=== PATIENT | male | born 1990 | race Caucasian/White ===

== ENCOUNTER 2020-10-09 09:41 | Outpatient (CLI) | payer MEDICARE, MEDICAID, SELFPAY | END 2020-10-09 09:42 | disposition home or self-care (01) | DX: H90.6 Mixed conductive and sensorineural hearing loss, bilateral (principal) | CPT/HCPCS: 92557; 92567 ==

== ENCOUNTER 2021-10-18 11:16 | Outpatient (CLI) | payer MEDICARE, MEDICAID, SELFPAY | END 2021-10-18 11:17 | disposition home or self-care (01) | LOC: ANHBWCAUD 11:18 | DX: H90.6 Mixed conductive and sensorineural hearing loss, bilateral (principal) | CPT/HCPCS: 92557; 92567 ==

== ENCOUNTER 2022-10-21 08:59 | Outpatient (CLI) | payer MEDICARE, MEDICAID, SELFPAY | END 2022-10-21 09:00 | disposition home or self-care (01) | LOC: ANHBWCAUD 09:00 | DX: H91.93 Unspecified hearing loss, bilateral (principal) | CPT/HCPCS: 92567 ==

== ENCOUNTER 2023-07-22 07:52 | Outpatient (CLI) | payer MEDICARE, MEDICAID, SELFPAY | END 2023-07-22 07:53 | disposition home or self-care (01) | LOC: ANHBWCAUD 08:06 | PROVIDERS: PCP Internal Medicine Rheumatology | DX: H91.93 Unspecified hearing loss, bilateral (principal) | CPT/HCPCS: 99199 ==

== ENCOUNTER 2023-12-02 10:27 | Outpatient (CLI) | payer MEDICARE, MEDICAID, SELFPAY | END 2023-12-02 10:28 | disposition home or self-care (01) | PROVIDERS: PCP Internal Medicine Rheumatology | DX: H91.93 Unspecified hearing loss, bilateral (principal) | CPT/HCPCS: 92567; 99199 ==

== ENCOUNTER 2025-04-11 09:00 | Outpatient (CLI) | payer MEDICARE, MEDICAID, SELFPAY ==
--- OUTSIDE RECORDS SUMMARY | 2025-04-11 09:49 | XMS_ITS | Encounter Summary ---
Author Organization [facility] Address [address] [place] [address] Phone Care Team Providers Care Popcorn Attendant Name Role Phone Provider, Unknown Primary Care Provider Unavaila ble Mario Quinones MD Primary Care Provider Federico Galdamez MD Primary Care Provider [phone] Eulalia Sebastian MD Unavailable [phone] Encounter Details Date Type Department Care Team (Late st Contact Info) Description 05/22/2021 Lab Requisition [facility] Laboratory Services [address] [place] [address] Mario Quinones MD 4 [facility] [address] [place] [address] Social History Tobacco Use Types Packs/Day Years Used Date Smoking Tobacco: Never Assessed Sex and Gender Information Value Date Recorded Sex Assigned at Not on file Legal Sex Male 12:03 AM CDT Gender Identity Not on file Sexual Orientation Not on file documented as of this encounter Plan of Treatment Upcoming Encounters Date Type Department Care Team (Late st Contact Info) Description 09/20/2025 1:30 PM CDT Office Visit [facility] Medical Group - Ear, Nose & Throat - [place] [address] [place] [address] Eulalia Sebastian MD [address] [facility] [address] [place] [address] documented as of this encounter Procedures Procedure Name Priority Date/Time Associated Diagnosis Comments SARS-COV-2 BY MOLECULAR Routine 05/22/2021 7:52 AM MIRROR SPECIALIST documented in this encounter Results * SARS-COV-2 BY MOLECULAR (05/22/2021 7:52 AM MIRROR SPECIALIST) SARSCOV2 NOT DETECTED (Referen ce Range for this test is Not Detected ) [facility] THERMOFISHER FAST DX 05/23/2021 1:28 PM MIRROR SPECIALIST [facility] Comment:This test was perfor med by a RT-PCR method. Other Non-Phlebotomy Collection / Unknown 05/22/2021 7:52 AM MIRROR SPECIALIST 05/22/2021 10:54 AM MIRROR SPECIALIST [facility]ative [facility] - 05/23/2021 1:28 PM MIRROR SPECIALIST Authorized Fact Sheets about this test for providers and patients are available at: https://www.fda.gov/medical-devices/iueodebym-nnlvuhgbnp-xsrmwre-devices/emergen -us e-authorizations us Mario Quinones MD MICROBIOLOGY - GENERAL ORDERAB LES Final Result [facility] [address] [place] [address], documented in this encounter Visit Diagnoses Not on filedocumented in this encounter Additional Health Concerns Infection Onset Date Last Indicated Resolved Time COVID - 19 05/22/2021 05/29/2021 06/18/2021 12:1 6 AM MIRROR SPECIALIST COVID - 19 08/28/2021 09/04/2021 09/24/2021 12:1 7 AM CDT COVID - 19 10/16/2021 11/20/2021 12/10/2021 12:1 6 AM CDT COVID - 19 02/19/2022 02/19/2022 03/01/2022 12:1 6 AM CDT COVID - 19 03/05/2022 03/19/2022 03/29/2022 12:1 6 AM CDT COVID - 19 04/02/2022 04/02/2022 04/12/2022 12:1 6 AM CDT COVID - 19 04/16/2022 04/23/2022 05/03/2022 12:1 7 AM MIRROR SPECIALIST COVID - 19 06/25/2022 08/13/2022 08/23/2022 12:1 6 AM MIRROR SPECIALIST COVID - 19 09/03/2022 09/03/2022 09/13/2022 12:1 6 AM CDT documented as of this encounter Care Teams Popcorn Attendant Relationship Specialty Start Date End Date Provider, Unknown UNKNOWN PCP - General 05/22/21 09/11/22 Mario Quinones MD 4 [facility] [address] [facility] [address] PCP - General Family Medicine 09/12/22 04/17/24 Federico Galdamez MD [address] [facility] [address] [place] [address] PCP - General Internal Medicine 04/18/24 Eulalia Sebastian MD #2 [facility] [address] [place] [address] Consulting Physician Otolaryngology 02/15/25 documented as of this encounter
--- OUTSIDE RECORDS SUMMARY | 2025-04-11 09:50 | XMS_ITS | Encounter Summary ---
Author Organization [facility] Address [address] [place] [address] Phone Care Team Providers Care Micro Paleontologist Name Role Phone Provider, Unknown Primary Care Provider Unavaila ble Mario Quinones MD Primary Care Provider [phone] Federico Galdamez MD Primary Care Provider Eulalia Sebastian MD Unavailable [phone] Encounter Details Date Type Department Care Team (Late st Contact Info) Description 07/09/2022 Lab Requisition [facility] Laboratory Services [address] [place] [address] Mario Quinones MD [address] [facility] [address] [place] [address] Encounter for screening for COVID-19 Social History Tobacco Use Types Packs/Day Years [...] Description 09/20/2025 1:30 PM CDT [facility] Th[facility]at - [place] [address] [place] [address] Eulalia Sebastian MD [address] [facility] [facility] [address] [place] [address] documented as of this encounter Procedures Procedure Name Priority Date/Time Associated Diagnosis Comments SARS-COV-2 BY MOLECULAR Routine 07/09/2022 7:50 AM WOOL SHEARER Encounter for screening for COVID-19 documented in this encounter Results * SARS-COV-2 BY MOLECULAR (07/09/2022 7:50 AM WOOL SHEARER) SARSCOV2 NOT DETECTED (Referen ce Range for this test is Not Detected ) [facility] THERMOF[facility] FAST DX 07/09/2022 8:36 PM WOOL SHEARER [facility] Comment:This test was perfor med by a RT-PCR method. Other Non-Phlebotomy Collection / Unknown 07/09/2022 7:50 AM WOOL SHEARER 07/09/2022 10:10 AM [address]ER N[address] [facility] - 07/09/2022 8:36 PM WOOL SHEARER Authorized Fact Sheets about this test for providers and patients are available at: https://www.fda.gov/medical-devices/immimzvir-mpninwrbzu-rxpiadj-devices/emergen -us e-authorizations us Mario Quinones MD MICROBIOLOGY - GENERAL ORDERAB LES Final Result [facility] [address] [place] [address], documented in this encounter Visit Diagnoses Diagnosis Encounter for screening for COVID-19 documented in this encounter Additional Health Concerns Infection Onset Date Last Indicated Resolved Time COVID - 19 06/25/2022 08/13/2022 08/23/2022 12:1 6 AM WOOL SHEARER COVID - 19 09/03/2022 09/03/2022 09/13/2022 12:1 6 AM CDT documented as of this encounter Care Teams Micro Paleontologist Relationship Specialty Start Date End Date Provider, Unknown UNKNOWN PCP - General 05/22/21 09/11/22 Mario Quinones MD [address] [place] [address] [address] [place] [address] PCP - General Family Medicine 09/12/22 04/17/24 Federico Galdamez MD [address] [facility] [address] [place] [address] PCP - General Internal Medicine 04/18/24 Eulalia Sebastian MD #2 [facility] [address] [address] Consulting Physician Otolaryngology 02/15/25 documented as of this encounter
--- OUTSIDE RECORDS SUMMARY | 2025-04-11 09:50 | XMS_ITS | Encounter Summary ---
Author Organization [facility] Address [address] [place] [address] Phone Care Team Providers Care Security Engineer Name Role Phone Provider, Unknown Primary Care Provider Unavaila ble Mario Quinones MD Primary Care Provider [phone] Federico Galdamez MD Primary Care Provider Eulalia Sebastian MD Unavailable [phone] Encounter Details Date Type Department Care Team (Late st Contact Info) Description 04/16/2022 Lab Requisition [facility] Laboratory Services [address] [place] [address] Mario Quinones MD [address] [facility] [address] [place] [address] Encounter for screening for COVID-19 Social History [...] Description 09/20/2025 1:30 PM CDT Office Visit [facility] Medical Group - Ear, Nose & Throat - [place] [address] [place] [address] Eulalia Sebastian MD [address] [facility] [address] [place] [address] documented as of this encounter Procedures Procedure Name Priority Date/Time Associated Diagnosis Comments SARS-COV-2 BY MOLECULAR Routine 04/16/2022 8:20 AM CDT Encounter for screening for COVID-19 documented in this encounter Results * SARS-COV-2 BY MOLECULAR (04/16/2022 8:20 AM CDT) SARSCOV2 NOT DETECTED (Referen ce Range for this test is Not Detected ) [facility] THERMOFISHER FAST DX 04/17/2022 9:53 AM CDT [facility] Comment:This test was perfor med by a RT-PCR method. Other Non-Phlebotomy Collection / Unknown 04/16/2022 8:20 AM CDT 04/16/2022 11:53 AM CDT Narrative [facility] - 04/17/2022 9:53 AM CDT Authorized Fact Sheets about this test for providers and patients are available at: https://www.fda.gov/medical-devices/wezwdniyf-targfvdaec-dowwuyh-devices/emergen -us e-authorizations us Mario Quinones MD MICROBIOLOGY - GENERAL ORDERAB LES Final Result [facility] [address] [place] [address], documented in this encounter Visit Diagnoses Diagnosis Encounter for screening for COVID-19 documented in this encounter Additional Health Concerns Infection Onset Date Last Indicated Resolved Time COVID - 19 04/16/2022 04/23/2022 05/03/2022 12:1 7 AM KINDERGARTEN TUTOR COVID - 19 06/25/2022 08/13/2022 08/23/2022 12:1 6 AM KINDERGARTEN TUTOR COVID - 19 09/03/2022 09/03/2022 09/13/2022 12:1 6 AM CDT documented as of this encounter Care Teams Security Engineer Relationship Specialty Start Date End Date Provider, Unknown UNKNOWN PCP - General 05/22/21 09/11/22 Mario Quinones MD [address] [place] [address] [place] [address] PCP - General Family Medicine 09/12/22 04/17/24 Federico Galdamez MD [address] [facility] [address] [place] [address] PCP - General Internal Medicine 04/18/24 Eulalia Sebastian MD #2 [facility] [address] [place] [address] Consulting Physician Otolaryngology 02/15/25 documented as of this encounter
--- OUTSIDE RECORDS SUMMARY | 2025-04-11 09:50 | XMS_ITS | Encounter Summary ---
Author Organization [facility] Address [address] [place] [address] Phone Care Team Providers Care Clothespin Drier Operator Name Role Phone Provider, Unknown Primary Care Provider Unavaila ble Mario Quinones MD Primary Care Provider Federico Galdamez MD Primary Care Provider Eulalia Sebastian MD Unavailable [phone] Encounter Details Date Type Department Care Team (Late st Contact Info) Description 09/04/2021 [facility] [address] [place] [address] Mario Quinones MD [address] [facility] [address] [place] [address] Encounter for screening for COVID-19 Social History [...] Group - Ear, Nose & Throat - [place] [address] [place] [address] Eulalia Sebastian MD [address] [facility] [address] [place] [address] documented as of this encounter Procedures Procedure Name Priority Date/Time Associated Diagnosis Comments SARS-COV-2 BY MOLECULAR Routine 09/04/2021 7:28 AM CDT Encounter for screening for COVID-19 documented in this encounter Results * SARS-COV-2 BY MOLECULAR (09/04/2021 7:28 AM CDT) SARSCOV2 NOT DETECTED (Referen ce Range for this test is Not Detected ) [facility] THERMOFISHER FAST DX 09/04/2021 11:53 PM CDT [facility] Comment:This test was perfor med by a RT-PCR method. Other Non-Phlebotomy Collection / Unknown 09/04/2021 7:28 AM CDT 09/04/2021 1:06 PM CDT Narrative [facility] - 09/04/2021 11:53 PM CDT Authorized Fact Sheets about this test for providers and patients are available at: https://www.fda.gov/medical-devices/jdiohqvfa-mrbrisehra-rlavffo-devices/emergen -us e-authorizations us Mario Quinones MD MICROBIOLOGY - GENERAL ORDERAB LES Final Result [facility] [address] [place] [address], documented in this encounter Visit Diagnoses Diagnosis Encounter for screening for COVID-19 documented in this encounter Additional Health Concerns Infection Onset Date Last Indicated Resolved Time COVID - 19 08/28/2021 09/04/2021 09/24/2021 12:1 7 AM CDT COVID - 19 10/16/2021 11/20/2021 12/10/2021 12:1 6 AM CDT COVID - 19 02/19/2022 02/19/2022 03/01/2022 12:1 6 AM CDT COVID - 19 03/05/2022 03/19/2022 03/29/2022 12:1 6 AM CDT COVID - 19 04/02/2022 04/02/2022 04/12/2022 12:1 6 AM CDT COVID - 19 04/16/2022 04/23/2022 05/03/2022 12:1 7 AM CSR TECHNICIAN COVID - 19 06/25/2022 08/13/2022 08/23/2022 12:1 6 AM CSR TECHNICIAN COVID - 19 09/03/2022 09/03/2022 09/13/2022 12:1 6 AM CDT documented as of this encounter Care Teams Clothespin Drier Operator Relationship Specialty Start Date End Date Provider, Unknown UNKNOWN PCP - General 05/22/21 09/11/22 Mario Quinones MD 4 [facility] [address] [facility] [place] [address] PCP - General Family Medicine 09/12/22 04/17/24 Federico Galdamez MD [address] [facility] 160 [place] [address] PCP - General Internal Medicine 04/18/24 Eulalia Sebastian MD #2 [facility] [address] [place] [address] Consulting Physician Otolaryngology 02/15/25 documented as of this encounter
--- OUTSIDE RECORDS SUMMARY | 2025-04-11 09:50 | XMS_ITS | Encounter Summary ---
Author Organization [facility] Address [address] [place] [address] Phone Care Team Providers Care Glassine Machine Tender Name Role Phone Provider, Unknown Primary Care Provider Unavaila ble Mario Quinones MD Primary Care Provider [phone] Federico Galdamez MD Primary Care Provider Eullaia Sebastian MD Unavailable [phone] Encounter Details Date Type Department Care Team (Late st Contact Info) Description 03/12/2022 [facility] [address] [place] [address] Mario Quinones MD [address] [facility] [address] [place] [address] Encounter for screening for COVID-19 Social History [...] Group - Ear, Nose & Throat - [place] [address] [place] [address] Eulalia Sebastian MD [address] [facility] [address] [place] [address] documented as of this encounter Procedures Procedure Name Priority Date/Time Associated Diagnosis Comments SARS-COV-2 BY MOLECULAR Routine 03/12/2022 7:40 AM CDT Encounter for screening for COVID-19 documented in this encounter Results * SARS-COV-2 BY MOLECULAR (03/12/2022 7:40 AM CDT) SARSCOV2 NOT DETECTED (Referen ce Range for this test is Not Detected ) [facility] THERMOFISHER FAST DX 03/13/2022 10:24 AM CDT [facility] Comment:This test was perfor med by a RT-PCR method. Other Non-Phlebotomy Collection / Unknown 03/12/2022 7:40 AM CDT 03/12/2022 11:23 AM CDT Narrative [facility] - 03/13/2022 10:24 AM CDT Authorized Fact Sheets about this test for providers and patients are available at: https://www.fda.gov/medical-devices/yabznzgbc-lnhiejzsjg-awtqdve-devices/emergen -us e-authorizations us Mario Quinones MD MICROBIOLOGY - GENERAL ORDERAB LES Final Result [facility] [address] [place] [address], documented in this encounter Visit Diagnoses Diagnosis Encounter for screening for COVID-19 documented in this encounter Additional Health Concerns Infection Onset Date Last Indicated Resolved Time COVID - 19 03/05/2022 03/19/2022 03/29/2022 12:1 6 AM CDT COVID - 19 04/02/2022 04/02/2022 04/12/2022 12:1 6 AM CDT COVID - 19 04/16/2022 04/23/2022 05/03/2022 12:1 7 AM MEDICAL BILLING COORDINATOR COVID - 19 06/25/2022 08/13/2022 08/23/2022 12:1 6 AM MEDICAL BILLING COORDINATOR COVID - 19 09/03/2022 09/03/2022 09/13/2022 12:1 6 AM CDT documented as of this encounter Care Teams Glassine Machine Tender Relationship Specialty Start Date End Date Provider, Unknown UNKNOWN PCP - General 05/22/21 09/11/22 Mario Quinones MD 4 [facility] [address] [place] [address] PCP - General Family Medicine 09/12/22 04/17/24 Federico Galdamez MD [address] [facility] [address] [place] [address] PCP - General Internal Medicine 04/18/24 Eulalia Sebastian MD #2 [facility] [address] [place] [address] Consulting Physician Otolaryngology 02/15/25 documented as of this encounter
--- OUTSIDE RECORDS SUMMARY | 2025-04-11 09:50 | XMS_ITS | Encounter Summary ---
Author Organization [facility] Address [address] [place] [address] Phone Care Team Providers Care High Worker Name Role Phone Provider, Unknown Primary Care Provider Unavaila ble Mario Quinones MD Primary Care Provider [phone] Federico Galdamez MD Primary Care Provider [phone] Eulalia Sebastian MD Unavailable [phone] Encounter Details Date Type Department Care Team (Late st Contact Info) Description 06/25/2022 Lab Requisition [facility] Laboratory Services [address] [place] [phone] Mario Quinones MD [address] [facility] [address] [place] [address] Encounter for screening for COVID-19 Social History [...] Group - Ear, Nose & Throat - [place] [address] [place] [address] Eulalia Sebastian MD [address] [address] [facility] [address] [place] [address] documented as of this encounter Procedures Procedure Name Priority Date/Time Associated Diagnosis Comments SARS-COV-2 BY MOLECULAR Routine 06/25/2022 7:59 AM DIGITIZER OPERATOR Encounter for screening for COVID-19 documented in this encounter Results * SARS-COV-2 BY MOLECULAR (06/25/2022 7:59 AM DIGITIZER OPERATOR) SARSCOV2 NOT DETECTED (Referen ce Range for this test is Not Detected ) [facility] THERMOFISHER FAST DX 06/25/2022 9:20 PM DIGITIZER OPERATOR [facility] Comment:This test was perfor med by a RT-PCR method. Other No Phlebotomy Charged / Unknown 06/25/2022 7:59 AM DIGITIZER OPERATOR 06/25/2022 10:34 AM DIGITIZER OPERATOR Narrative [facility] - 06/25/2022 9:20 PM DIGITIZER OPERATOR Authorized Fact Sheets about this test for providers and patients are available at: https://www.fda.gov/medical-devices/ibmkgqisg-fovjqvxmxo-qozvjob-devices/emergen -us e-authorizations us Mario Quinones MD MICROBIOLOGY - GENERAL ORDERAB LES Final Result [facility] [address] [place] [address], documented in this encounter Visit Diagnoses Diagnosis Encounter for screening for COVID-19 documented in this encounter Additional Health Concerns Infection Onset Date Last Indicated Resolved Time COVID - 19 06/25/2022 08/13/2022 08/23/2022 12:1 6 AM DIGITIZER OPERATOR COVID - 19 09/03/2022 09/03/2022 09/13/2022 12:1 6 AM CDT documented as of this encounter Care Teams High Worker Relationship Specialty Start Date End Date Provider, Unknown UNKNOWN PCP - General 05/22/21 09/11/22 Mario Quinones MD [address] [place] [address] [address] [place] [address] PCP - General Family Medicine 09/12/22 04/17/24 Federico Galdamez MD [address] [place] [address] PCP - General Internal Medicine 04/18/24 Eulalia Sebastian MD #2 [facility] [address] [address] Consulting Physician Otolaryngology 02/15/25 documented as of this encounter
--- OUTSIDE RECORDS SUMMARY | 2025-04-11 09:50 | XMS_ITS | Encounter Summary ---
Author Organization [facility] Address [address] [place] [address] Phone Care Team Providers Care Banquet Supervisor Name Role Phone Provider, Unknown Primary Care Provider Unavaila ble Mario Quinones MD Primary Care Provider Federico Galdamez MD Primary Care Provider Eulalia Sebastian MD Unavailable [phone] Encounter Details Date Type Department Care Team (Late st Contact Info) Description 05/29/2021 Lab Requisition [facility] Laboratory Services [address] [place] [address] Mario Quinones MD [address] [facility] [address] [place] [address] Encounter for screening for COVID-19 Social History [...] Description 09/20/2025 1:30 PM CDT Office Visit [facility] Medical Group - Ear, Nose & Throat - [place] [address] [place] [address] Eulalia Sebastian MD [address] [facility] [address] [place] [address] documented as of this encounter Procedures Procedure Name Priority Date/Time Associated Diagnosis Comments SARS-COV-2 BY MOLECULAR Routine 05/29/2021 8:08 AM VICE PRESIDENT OF BRAND MANAGEMENT Encounter for screening for COVID-19 documented in this encounter Results * SARS-COV-2 BY MOLECULAR (05/29/2021 8:08 AM VICE PRESIDENT OF BRAND MANAGEMENT) SARSCOV2 NOT DETECTED (Referen ce Range for this test is Not Detected ) [facility] THERMOFISHER FAST DX 05/30/2021 5:59 PM VICE PRESIDENT OF BRAND MANAGEMENT [facility] Comment:This test was perfor med by a RT-PCR method. Other No Phlebotomy Charged / Unknown 05/29/2021 8:08 AM VICE PRESIDENT OF BRAND MANAGEMENT 05/29/2021 10:58 AM VICE PRESIDENT OF BRAND MANAGEMENT Narrative [facility] - 05/30/2021 5:59 PM VICE PRESIDENT OF BRAND MANAGEMENT Authorized Fact Sheets about this test for providers and patients are available at: https://www.fda.gov/medical-devices/dffuohfyp-hejewjvbce-qcmjimh-devices/emergen -us e-authorizations us Mario Quinones MD MICROBIOLOGY - GENERAL ORDERAB LES Final Result [facility] [address] [place] [address], documented in this encounter Visit Diagnoses Diagnosis Encounter for screening for COVID-19 documented in this encounter Additional Health Concerns Infection Onset Date Last Indicated Resolved Time COVID - 19 05/22/2021 05/29/2021 06/18/2021 12:1 6 AM VICE PRESIDENT OF BRAND MANAGEMENT COVID - 19 08/28/2021 09/04/2021 09/24/2021 12:1 7 AM CDT COVID - 19 10/16/2021 11/20/2021 12/10/2021 12:1 6 AM CDT COVID - 19 02/19/2022 02/19/2022 03/01/2022 12:1 6 AM CDT COVID - 19 03/05/2022 03/19/2022 03/29/2022 12:1 6 AM CDT COVID - 19 04/02/2022 04/02/2022 04/12/2022 12:1 6 AM CDT COVID - 19 04/16/2022 04/23/202205/03/2022 12:1 7 AM VICE PRESIDENT OF BRAND MANAGEMENT COVID - 19 06/25/2022 08/13/2022 08/23/2022 12:1 6 AM VICE PRESIDENT OF BRAND MANAGEMENT COVID - 19 09/03/2022 09/03/2022 09/13/2022 12:1 6 AM CDT documented as of this encounter Care Teams Banquet Supervisor Relationship Specialty Start Date End Date Provider, Unknown UNKNOWN PCP - General 05/22/21 09/11/22 Mario Quinones MD [address] [facility] [address] [place] [address] PCP - General Family Medicine 09/12/22 04/17/24 Federico Galdamez MD [address] [facility] 160 [place] [address] PCP - General Internal Medicine 04/18/24 Eulalia Sebastian MD #2 [facility] [address] [place] [address] Consulting Physician Otolaryngology 02/15/25 documented as of this encounter
--- OUTSIDE RECORDS SUMMARY | 2025-04-11 09:50 | XMS_ITS | Encounter Summary ---
Author Organization [facility] Address [address] [place] [address] Phone Care Team Providers Care Racing Driver Name Role Phone Provider, Unknown Primary Care Provider Unavaila ble Mario Quinones MD Primary Care Provider Federico Galdamez MD Primary Care Provider Eulalia Sebastian MD Unavailable [phone] Encounter Details Date Type Department Care Team (Late st Contact Info) Description 11/06/2021 Lab Requisition [facility] Laboratory Services [address] [place] [address] Mario Quinones MD 4 [facility] [address] [place] [address] Encounter for screening for COVID-19 Social History [...] Group - Ear, Nose & Throat - [place] [address] [place] [address] Eulalia Sebastian MD [address] [address] [place] [phone] documented as of this encounter Procedures Procedure Name Priority Date/Time Associated Diagnosis Comments SARS-COV-2 BY MOLECULAR Routine 11/06/2021 8:24 AM CDT Encounter for screening for COVID-19 documented in this encounter Results * SARS-COV-2 BY MOLECULAR (11/06/2021 8:24 AM CDT) SARSCOV2 NOT DETECTED (Referen ce Range for this test is Not Detected ) [facility] THERMOFISHER FAST DX 11/07/2021 6:32 PM CDT [facility] Comment:This test was perfor med by a RT-PCR method. Other Non-Phlebotomy Collection / Unknown 11/06/2021 8:24 AM CDT 11/06/2021 10:48 AM CDT Narrative [facility] - 11/07/2021 6:32 PM CDT Authorized Fact Sheets about this test for providers and patients are available at: https://www.fda.gov/medical-devices/bjqnqdhvr-dqpzyqjsqt-axfrnjo-devices/emergen -us e-authorizations us Mario Quinones MD MICROBIOLOGY - GENERAL ORDERAB LES Final Result [facility] [address] [place] [address], documented in this encounter Visit Diagnoses Diagnosis Encounter for screening for COVID-19 documented in this encounter Additional Health Concerns Infection Onset Date Last Indicated Resolved Time COVID - 19 10/16/2021 11/20/2021 12/10/2021 12:1 6 AM CDT COVID - 19 02/19/2022 02/19/2022 03/01/2022 12:1 6 AM CDT COVID - 19 03/05/2022 03/19/2022 03/29/2022 12:1 6 AM CDT COVID - 19 04/02/2022 04/02/2022 04/12/2022 12:1 6 AM CDT COVID - 19 04/16/2022 04/23/2022 05/03/2022 12:1 7 AM RADIO BOARD OPERATOR ANNOUNCER COVID - 19 06/25/2022 08/13/2022 08/23/2022 12:1 6 AM RADIO BOARD OPERATOR ANNOUNCER COVID - 19 09/03/2022 09/03/2022 09/13/2022 12:1 6 AM CDT documented as of this encounter Care Teams Racing Driver Relationship Specialty Start Date End Date Provider, Unknown UNKNOWN PCP - General 05/22/21 09/11/22 Mario Quinones MD 4 [facility] [address] [place] [address] PCP - General Family Medicine 09/12/22 04/17/24 Federico Galdamez MD [address] [facility] [address] [place] [address] PCP - General Internal Medicine 04/18/24 Eulalia Sebastian MD #2 [facility] [address] [place] [address] Consulting Physician Otolaryngology 02/15/25 documented as of this encounter
--- OUTSIDE RECORDS SUMMARY | 2025-04-11 09:50 | XMS_ITS | Encounter Summary ---
Author Organization [facility] Address [address] [place] [address] Phone Care Team Providers Care Internet Marketing Specialist Name Role Phone Provider, Unknown Primary Care Provider Unavaila ble Mario Quinones MD Primary Care Provider Federico Galdamez MD Primary Care Provider Eulalia Sebastian MD Unavailable [phone] Encounter Details Date Type Department Care Team (Late st Contact Info) Description 10/23/2021 Lab Requisition [facility] Laboratory Services [address] [place] [id number] Mario Quinones MD [address] [facility] [address] [place] [address] Encounter for screening for COVID-19 Social History [...] Group - Ear, Nose & Throat - [place] [address] [place] [address] Eulalia Sebastian MD [address] [facility] [address] [place] [phone] documented as of this encounter Procedures Procedure Name Priority Date/Time Associated Diagnosis Comments SARS-COV-2 BY MOLECULAR Routine 10/23/2021 8:04 AM CDT Encounter for screening for COVID-19 documented in this encounter Results * SARS-COV-2 BY MOLECULAR (10/23/2021 8:04 AM CDT) SARSCOV2 NOT DETECTED (Referen ce Range for this test is Not Detected ) [facility] THERMOFISHER FAST DX 10/23/2021 11:40 PM CDT [facility] Comment:This test was perfor med by a RT-PCR method. Other Non-Phlebotomy Collection / Unknown 10/23/2021 8:04 AM CDT 10/23/2021 12:02 PM CDT Narrative [facility] - 10/23/2021 11:40 PM CDT Authorized Fact Sheets about this test for providers and patients are available at: https://www.fda.gov/medical-devices/xcggfjint-gppqnspdla-iwaabsg-devices/emergen -us e-authorizations us Mario Quinones MD MICROBIOLOGY - GENERAL ORDERAB LES Final Result [facility] [address] [place] [address], documented in this encounter Visit Diagnoses Diagnosis [...] 19 04/16/2022 04/23/2022 05/03/2022 12:1 7 AM HOUSE WIRER COVID - 19 06/25/2022 08/13/2022 08/23/2022 12:1 6 AM HOUSE WIRER COVID - 19 09/03/2022 09/03/2022 09/13/2022 12:1 6 AM CDT documented as of this encounter Care Teams Internet Marketing Specialist Relationship Specialty Start Date End Date Provider, Unknown UNKNOWN PCP - General 05/22/21 09/11/22 Mario Quinones MD [address] [facility] [address] [place] [address] PCP - General Family Medicine 09/12/22 04/17/24 Federico Galdamez MD [address] [facility] [address] [place] [address] PCP - General Internal Medicine 04/18/24 Eulalia Sebastian MD #2 [facility] [address] [place] [address] Consulting Physician Otolaryngology 02/15/25 documented as of this encounter
--- OUTSIDE RECORDS SUMMARY | 2025-04-11 09:50 | XMS_ITS | Encounter Summary ---
Author Organization [facility] Address [address] [place] [address] Phone Care Team Providers Care Spring Setter Name Role Phone Provider, Unknown Primary Care Provider Unavaila ble Mario Quinones MD Primary Care Provider [phone] Federico Galdamez MD Primary Care Provider Eulalia Sebastian MD Unavailable [phone] Encounter Details Date Type Department Care Team (Late st Contact Info) Description 07/23/2022 Lab Requisition [facility] Laboratory Services [address] [place] [address] Mario Quinones MD [address] [facility] [address] [place] [address] Encounter for screening for COVID-19 Social History [...] Group - Ear, Nose & Throat - [place] [address] [place] [address] Eulalia Sebastian MD [address] [facility] [facility] [address] [place] [phone] documented as of this encounter Procedures Procedure Name Priority Date/Time Associated Diagnosis Comments SARS-COV-2 BY MOLECULAR Routine 07/23/2022 7:58 AM WHISTLE PUNK Encounter for screening for COVID-19 documented in this encounter Results * SARS-COV-2 BY MOLECULAR (07/23/2022 7:58 AM WHISTLE PUNK) SARSCOV2 NOT DETECTED (Referen ce Range for this test is Not Detected ) [facility] THERMOFISHER FAST DX 07/23/2022 9:47 PM WHISTLE PUNK [facility] Comment:This test was perfor med by a RT-PCR method. Other Non-Phlebotomy Collection / Unknown 07/23/2022 7:58 AM WHISTLE PUNK 07/23/2022 10:14 AM WHISTLE PUNK Narrative [facility] - 07/23/2022 9:47 PM WHISTLE PUNK Authorized Fact Sheets about this test for providers and patients are available at: https://www.fda.gov/medical-devices/icqujalsx-sxbixuyzdc-wbbsaxs-devices/emergen -us e-authorizations us Mario Quinones MD MICROBIOLOGY - GENERAL ORDERAB LES Final Result [facility] [address] [place] [address], documented in this encounter Visit Diagnoses Diagnosis Encounter for screening for COVID-19 documented in this encounter Additional Health Concerns Infection Onset Date Last Indicated Resolved Time COVID - 19 06/25/2022 08/13/2022 08/23/2022 12:1 6 AM WHISTLE PUNK COVID - 19 09/03/2022 09/03/2022 09/13/2022 12:1 6 AM CDT documented as of this encounter Care Teams Spring Setter Relationship Specialty Start Date End Date Provider, Unknown UNKNOWN PCP - General 05/22/21 09/11/22 Mario Quinones MD [address] [place] [address] [address] [place] [address] PCP - General Family Medicine 09/12/22 04/17/24 Federico Galdamez MD [address] [facility] [address] [place] [address] PCP - General Internal Medicine 04/18/24 Eulalia Sebastian MD #2 [facility] [address] [address] Consulting Physician Otolaryngology 02/15/25 documented as of this encounter
--- OUTSIDE RECORDS SUMMARY | 2025-04-11 09:50 | XMS_ITS | Encounter Summary ---
Author Organization [facility] Address [address] [place] [address] Phone Care Team Providers Care Glass Worker Name Role Phone Provider, Unknown Primary Care Provider Unavaila ble Mario Quinones MD Primary Care Provider [phone] Federico Galdamez MD Primary Care Provider Eulalia Sebastian MD Unavailable [phone] Encounter Details Date Type Department Care Team (Late st Contact Info) Description 07/02/2022 Lab Requisition [facility] Laboratory Services [address] [place] [address] Mario Quinones MD [address] [facility] [address] [place] [address] Encounter for screening for COVID-19 Social History [...] Group - Ear, Nose & Throat - [place] [address] [place] [address] Eulalia Sebastian MD [address] [facility] [address] [place] [phone] documented as of this encounter Procedures Procedure Name Priority Date/Time Associated Diagnosis Comments SARS-COV-2 BY MOLECULAR Routine 07/02/2022 8:05 AM POCKET SECRETARY ASSEMBLER Encounter for screening for COVID-19 documented in this encounter Results * SARS-COV-2 BY MOLECULAR (07/02/2022 8:05 AM POCKET SECRETARY ASSEMBLER) SARSCOV2 NOT DETECTED (Referen ce Range for this test is Not Detected ) [facility] THERMOFISHER FAST DX 07/02/2022 10:53 PM POCKET SECRETARY ASSEMBLER [facility] Comment:This test was perfor med by a RT-PCR method. Other Non-Phlebotomy Collection / Unknown 07/02/2022 8:05 AM POCKET SECRETARY ASSEMBLER 07/02/2022 10:47 AM POCKET SECRETARY ASSEMBLER Narrative [facility] - 07/02/2022 10:53 PM POCKET SECRETARY ASSEMBLER Authorized Fact Sheets about this test for providers and patients are available at: https://www.fda.gov/medical-devices/iupdlepmd-hfgenwnrgv-qvznkin-devices/emergen -us e-authorizations us Mario Quinones MD MICROBIOLOGY - GENERAL ORDERAB LES Final Result [facility] [address] [place] [address], documented in this encounter Visit Diagnoses Diagnosis Encounter for screening for COVID-19 documented in this encounter Additional Health Concerns Infection Onset Date Last Indicated Resolved Time COVID - 19 06/25/2022 08/13/2022 08/23/2022 12:1 6 AM POCKET SECRETARY ASSEMBLER COVID - 19 09/03/2022 09/03/2022 09/13/2022 12:1 6 AM CDT documented as of this encounter Care Teams Glass Worker Relationship Specialty Start Date End Date Provider, Unknown UNKNOWN PCP - General 05/22/21 09/11/22 Mario Quinones MD [address] [place] [address] [address] [place] [address] PCP - General Family Medicine 09/12/22 04/17/24 Federico Galdamez MD [address] [facility] [address] [place] [address] PCP - General Internal Medicine 04/18/24 Eulalia Sebastian MD #2 [facility] [address] [address] Consulting Physician Otolaryngology 02/15/25 documented as of this encounter
--- OUTSIDE RECORDS SUMMARY | 2025-04-11 09:50 | XMS_ITS | Encounter Summary ---
Author Organization [facility] Address [address] [facility] [place] [address] Phone Care Team Providers Care Party Host Name Role Phone Federico Galdamez MD Primary Care Provider [phone] Eulalia Sebastian MD Unavailable [phone] Encounter Details Date Type Department Care Team (Latest Contact Info) Description 10/26/2024 Lab Requisition [facility] Laboratory Services [address] [place] [phone] Federico Galdamez MD [address] [facility] [address] [place] [address] Vitamin D deficiency, unspecified; Severe intellectual disabilities; Major depressive disorder, recurrent, mild (HCC); Attention-deficit hyperactivity disorder, unspecified type Social History Tobacco Use Types Packs/Day Years Used Date Smoking Tobacco: Never Smokeless Tobacco: Never Sex and Gender Information Value Date Recorded Sex Assigned at Not on file Legal Sex Male 12:03 AM CDT Gender Identity Not on file Sexual Orientation Not on file documented as of this encounter Plan of Treatment Upcoming Encounters Date Type Department Care Team (Late st Contact Info) Description 09/20/2025 1:30 PM CDT Office Visit [facility] Medical Group - Ear, Nose & Throat [facility] [address] [place] [address] Eulalia Sebastian MD #[address] [phone] documented as of this encounter Procedures Procedure Name Priority Date/Time Associated Diagnosis Comments VITAMIN D, 25 HYDROXY TOTAL Routine 10/26/2024 7:36 AM CDT Vitamin D deficiency, unspecified Severe intellectual disabilities Major depressive disorder, recurrent, mild (HCC) Attention-deficit hyperactivity disorder, unspecified type CBC WITH AUTO DIFFERENTIAL Routine 10/26/2024 7:36 AM CDT Vitamin D deficiency, unspecified Severe intellectual disabilities Major depressive disorder, recurrent, mild (HCC) Attention-deficit hyperactivity disorder, unspecified type THYROXINE (T4) FREE Routine 10/26/2024 7 :36 AM CDT Vitamin D deficiency, unspecified Severe intellectual disabilities Major depressive disorder, recurrent, mild (HCC) Attention-deficit hyperactivity disorder, unspecified type THYROID STIMULATING HORMONE (TSH) Routine 10/26/2024 7:36 AM CDT Vitamin D deficiency, unspecified Severe intellectual disabilities Major depressive disorder, recurrent, mild (HCC) Attention-deficit hyperactivity disorder, unspecified type LIPID PANEL Routine 10/26/2024 7:36 AM CDT Vitamin D deficiency, unspecified Severe intellectual disabilities Major depressive disorder, recurrent, mild (HCC) Attention-deficit hyperactivity disorder, unspecified type CMP (COMPREHENSIVE METABOLIC PANEL) Routine 10/26/2024 7:36 AM CDT Vitamin D deficiency, unspecified Severe intellectual disabilities Major depressive disorder, recurrent, mild (HCC) Attention-deficit hyperactivity disorder, unspecified type COMPLETE BLOOD COUNT (CBC) WITH DIFF Routine 10/26/2024 7:36 AM CDT Vitamin D deficiency, unspecified Severe intellectual disabilities Major depressive disorder, recurrent, mild (HCC) Attention-deficit hyperactivity disorder, unspecified type documented in this encounter Results * (ABNORMAL) CBC WITH AUTO DIFFERENTIAL (10/26/2024 7:36 AM CDT) WBC 9.51 4.00 - 12.00 10(3)/mcL 10/26/2024 9:17 AM CDT [facility] RBC 5.44 4.40 - 5.80 10(6)/[facility] 10/26/2024 9:17 AM CDT [facility] HEMOGLOBIN (HGB) 14.7 13.0 - 16.5 g/dL 10/26/2024 9:17 AM CDT [facility] HEMATOCRIT (HCT) 45.1 38.0 - 50.0 % 10/26/2024 9:17 AM CDT [facility] MCV 82.9 82.0 - 96.0 fL 10/26/2024 9:17 AM CDT [facility] MCH 27.0 26.0 - 32.0 pg 10/26/2024 9:17 AM CDT [facility] MCHC 32.6 31.0 - 36.0 g/dL 10/26/2024 9:17 AM CDT [facility] PLATELET COUNT 336 140 - 440 10(3)/mcL 10/26/2024 9:17 AM CDT [facility] RDW 12.8 11.8 - 15.5 % 10/26/2024 9:17 AM CDT [facility] MPV 9.4 8.0 - 12.6 fL 10/26/2024 9:17 AM CDT [facility] NEUTROPHILS 59.0 40.0 - 68.0 % 10/26/2024 9:17 AM CDT [facility] LYMPHOCYTES 30.8 19.0 - 49.0 % 10/26/2024 9:17 AM CDT [facility] MONOCYTES 8.0 3.0 - 13.0 % 10/26/2024 9:17 AM CDT [facility] EOSINOPHILS 1.6 0.0 - 8.0 % 10/26/2024 9:17 AM CDT [facility] BASOPHILS 0.6 0.0 - 1.0 % 10/26/2024 9:17 AM CDT [facility] ABSOLUTE NEUTROPHILS 5.61(H) 1.40 - 5.30 10(3)/mcL 10/26/2024 9:17 AM CDT [facility] ABSOLUTE LYMPHOCYTES 2.93 0.90 - 3.30 10(3)/mcL 10/26/2024 9:17 AM CDT [facility] ABSOLUTE MONOCYTES 0.76 0.10 - 0.90 10(3)/mcL 10/26/2024 9:17 AM CDT [facility] ABSOLUTE EOSINOPHIL 0.15 0.00 - 0.50 10(3)/mcL 10/26/2024 9:17 AM CDT [facility] ABSOLUTE BASOPHILS 0.06 0.00 - 0.10 10(3)/mcL 10/26/2024 9:17 AM CDT [facility] NRBC PER 100 WBC 0 10/27/19 25 9:17 AM CDT [facility] Blood Venipuncture / Unknown 10/26/2024 7:36 AM CDT 10/26/2024 8:47 AM CDT us Federico Galdamez MD HEMATOLOGY ORDERABLES Final Res ult [facility] [address] [place] [address] * VITAMIN D, 25 HYDROXY TOTAL (10/26/2024 7:36 AM CDT) VITAMIN D, 25 HYDROX 37.8 ng/mL 10/26/2024 10:17 AM CDT [facility] Blood Venipuncture / Unknown 10/26/2024 7:36 AM CDT 10/26/2024 8:47 AM CDT Narrative [facility] - 10/26/2024 10:17 AM CDT Published reference ranges for Vitamin D vary depending on time and place and method of testing, and on patient's age, sex, ethnicity and levels of other measured analytes such as parathormone, calcium and phosphorus. The result should be evaluated in conjunction with clinical findings and suspicions. [place] [employer] and Endocrine Clinical Practice Guidelines: Status Vitamin D levels (ng/mL) Deficient <=20 At risk of inadequacy 21-29 Sufficient 30-100 Centers of Disease Control and Prevention Guidelines: Status Vitamin D levels (ng/mL) Deficient <13 At risk of inadequacy 13-19 Sufficient 20-50 Possibly harmful >50 References: [place] [employer], 2010 Dietary reference intakes for calcium and vitamin D. [place]: The National Academies Press. Oneal M, Aris N, [employer], et al., Evaluation, treatment, and prevention of Vitamin D deficiency: an Endocrinology Clinical Practice Guideline. JCEM 2011 96: 7 5987-8455. Stcay A, Baljit C, Gurinder D, et al., Vitamin D Status: [place], 2651-0506, [facility] data brief, no. 59, MD Mehran: Formerly [facility] for [facility] Statistics. 2011. Federico Galdamez MD CHEMISTRY ORDERABLES Final Resu lt Performing Organization Address City/[facility]/ZIP Co de Phone Number [facility] [address] [place] [address] * THYROID STIMULATING HORMONE (TSH) (10/26/2024 7:36 AM CDT) TSH 2.199 0.300 - 5.000 mIU/L 10/26/2024 10:12 AM CDT [facility] Blood Venipuncture / Unknown 10/26/2024 7:36 AM CDT 10/26/2024 8:47 AM CDT us Federico Galdamez MD CHEMISTRY ORDERABLES Final Resu lt Performing Organization Address City/[facility]/ZIP Co de Phone Number [facility] [address] [place] [address] * THYROXINE (T4) FREE (10/26/2024 7:36 AM CDT) T4 FREE 1.2 0.7 - 1.9 ng/dL 10/26/2024 10:12 AM CDT [facility] Blood Venipuncture / Unknown 10/26/2024 7:36 AM CDT 10/26/2024 8:47 AM CDT us Federico Galdamez MD CHEMISTRY ORDERABLES Final Resu lt Performing Organization Address City/[facility]/ZIP Co de Phone Number [facility] [address] [place] [address] * LIPID PANEL (10/26/2024 7:36 AM CDT) CHOLESTEROL 165 <200 mg/dL 10/26/2024 10:04 AM CDT [facility] TRIGLYCERIDES 71 <150 mg/dL 10/26/2024 10:04 AM CDT [facility] HDL CHOLESTEROL 46 >40 mg/dL 10:04 AM CDT [facility] LDL 105 <130 mg/dL 10/26/2024 10:04 AM CDT [facility] VLDL 14 10 - 50 mg/dL 10/26/2024 10:04 AM CDT [facility] CHOL/HDL RATIO 3.6 0.0 - 4.4 10/26/2024 10:04 AM CDT [facility] NON-HDL CHOLESTEROL 119 <130 mg/dL 10/26/2024 10:04 AM CDT [facility] Blood Venipuncture / Unknown 10/26/2024 7:36 AM CDT 10/26/2024 8:47 AM CDT us Federico Galdamez MD CHEMISTRY ORDERABLES Final Resu lt Performing Organization Address City/[facility]/ZIP Co de Phone Number [facility] [address] [place] [address] * (ABNORMAL) CMP (COMPREHENSIVE METABOLIC PANEL) (10/26/2024 7:36 AM CDT) SODIUM 142 136 - 145 mmol/L 10/26/2024 10:04 AM CDT [facility] POTASSIUM 3.9 3.5 - 5.1 mmol/L 10/26/2024 10:04 AM CDT [facility] CHLORIDE 106 98 - 107 mmol/L 10/26/2024 10:04 AM T [facility] CO2, VENOUS 26 22 - 30 mmol/L 10/26/2024 10:04 AM T [facility] ANION GAP 13.9 <18.0 mmol/L 10/26/2024 10:04 AM T [facility] GLUCOSE 105(H) 70 - 99 mg/dL 10/26/2024 10:04 AM CDT [facility] BUN 12 9 - 21 mg/dL 10/26/2024 10:04 AM T [facility] CREATININE, BLOOD 0.70 0.70 - 1.30 mg/dL 10/26/2024 10:04 AM [facility] BUN/CREATININE RATIO 17 12 - 20 ratio 10/26/2024 10:04 AM [facility] TOTAL PROTEIN 7.6 6.0 - 8.0 g/dL 10/26/2024 10:04 AM T [facility] ALBUMIN 4.4 3.5 - 5.0 g/dL 10/26/2024 10:04 AM [facility] A/G RATIO 1.4 1.0 - 2.2 10/26/2024 10:04 AM [facility] CALCIUM 9.4 8.7 - 10.5 mg/dL 10/26/2024 10:04 AM [facility] T BILI 0.6 0.2 - 1.2 mg/dL 10/26/2024 10:04 AM T [facility] SGOT (AST) 29 <43 U/L 10/26/2024 10:04 AM T [facility] SGPT (ALT) 30 <56 U/L 10/26/2024 10:04 AM T [facility] ALKALINE PHOSPHATASE 82 40 - 150 U/L 10/26/2024 10:04 AM [facility] GFR, ESTIMATED >60 >=60 10/26/2024 10:04 AM T [facility] Comment: Creatinine Clearance is the preferred criteria for selecting drug dose adjustments in renally impaired patients. The GFR is provided as additional pertinent clinical information. GFR is reported in mL/min/1.73 sq m. Calculation based on the Chronic Kidney Disease Epidemiology Collaboration (CKD- EPI) equation refit without adjustment for race. GFR, EST. >60 >=60 025 10:04 AM CDT [facility] GFR, EST. NONAFRICAN >60 >=60 10/26/2024 10:04 AM CDT [facility] Blood Venipuncture / Unknown 10/26/2024 7:36 AM CDT 10/26/2024 8:47 AM CDT us Federico Galdamez MD CHEMISTRY ORDERABLES Final Resu lt [facility] [address] [place] [address] documented in this encounter Visit Diagnoses Diagnosis Vitamin D deficiency, unspecified Severe intellectual disabilities Major depressive disorder, recurrent, mild Major depressive disorder, recurrent episode, mild Attention-deficit hyperactivity disorder, unspecified type documented in this encounter Care Teams Party Host Relationship Specialty Start Date End Date Federico Galdamez MD [address] [facility] [address] [place] [address] PCP - General Internal Medicine 04/18/24 Eulalia Sebastian MD #2 [facility] [address] [place] [address] Consulting Physician Otolaryngology 02/15/25 documented as of this encounter
--- OUTSIDE RECORDS SUMMARY | 2025-04-11 09:50 | XMS_ITS | Encounter Summary ---
Author Organization [facility] Address [address] [place] [address] Phone Care Team Providers Care Contract Programmer Name Role Phone Provider, Unknown Primary Care Provider Unavaila ble Mario Quinones MD Primary Care Provider Federico Galdamez MD Primary Care Provider [phone] Eulalia Sebastian MD Unavailable [phone] Encounter Details Date Type Department Care Team (Late st Contact Info) Description 10/16/2021 [facility] [address] [place] [address] Mario Quinones MD [address] [facility] [address] [place] [address] Encounter for screening for COVID-19 Social History [...] Group - Ear, Nose & Throat - [place] [address] [place] [address] Eulalia Sebastian MD [address] [facility] [address] [place] [phone] documented as of this encounter Procedures Procedure Name Priority Date/Time Associated Diagnosis Comments SARS-COV-2 BY MOLECULAR Routine 10/16/2021 8:35 AM CDT Encounter for screening for COVID-19 documented in this encounter Results * SARS-COV-2 BY MOLECULAR (10/16/2021 8:35 AM CDT) SARSCOV2 NOT DETECTED (Referen ce Range for this test is Not Detected ) [facility] THERMOFISHER FAST DX 10/17/2021 11:37 AM CDT [facility] Comment:This test was perfor med by a RT-PCR method. Other Non-Phlebotomy Collection / Unknown 10/16/2021 8:35 AM CDT 10/16/2021 2:36 PM CDT Narrative [facility] - 10/17/2021 11:37 AM CDT Authorized Fact Sheets about this test for providers and patients are available at: https://www.fda.gov/medical-devices/ikgdqtmqg-vaxapaqglz-biqekik-devices/emergen -us e-authorizations us Mario Quinones MD MICROBIOLOGY - GENERAL ORDERAB LES Final Result [facility] [address] [place] [address], documented in this encounter Visit Diagnoses Diagnosis [...] 19 04/16/2022 04/23/2022 05/03/2022 12:1 7 AM OCCUPANCY SPECIALIST COVID - 19 06/25/2022 08/13/2022 08/23/2022 12:1 6 AM OCCUPANCY SPECIALIST COVID - 19 09/03/2022 09/03/2022 09/13/2022 12:1 6 AM CDT documented as of this encounter Care Teams Contract Programmer Relationship Specialty Start Date End Date Provider, Unknown UNKNOWN PCP - General 05/22/21 09/11/22 Mario Quinones MD [address] [facility] [address] [place] [address] PCP - General Family Medicine 09/12/22 04/17/24 Federico Galdamez MD [address] [facility] [address] [place] [address] PCP - General Internal Medicine 04/18/24 Eulalia Sebastian MD #2 [facility] [address] [place] [address] Consulting Physician Otolaryngology 02/15/25 documented as of this encounter
--- OUTSIDE RECORDS SUMMARY | 2025-04-11 09:50 | XMS_ITS | Encounter Summary ---
Author Organization [facility] Address [address] [place] [address] Phone Care Team Providers Care Leather Lacer Name Role Phone Provider, Unknown Primary Care Provider Unavaila ble Mario Quinones MD Primary Care Provider [phone] Federico Galdamez MD Primary Care Provider Eulalia Sebastian MD Unavailable [phone] Encounter Details Date Type Department Care Team (Late st Contact Info) Description 04/16/2022 [facility] [address] [place] [address] Mario Quinones MD 4 [facility] [address] [place] [address] Encounter for screening for COVID-19 Social History [...] Description 09/20/2025 1:30 PM CDT Office Visit [facility] Medical Group - Ear, Nose & Throat - [place] [address] [place] [address] Eulalia Sebastian MD [address] [facility] [address] [place] [phone] Scheduled Orders Name Type Priority Associated Diagnoses Orde r Schedule SARS-COV-2 BY MOLECULAR Microbiology Routine Encounter for screening for COVID-19 Ordered: 04/16/2022 documented as of this encounter Visit Diagnoses Diagnosis Encounter for screening for COVID-19 documented in this encounter Additional Health Concerns Infection Onset Date Last Indicated Resolved Time COVID - 19 04/16/2022 04/23/2022 05/03/2022 12:1 7 AM SHUTTLER COVID - 19 06/25/2022 08/13/2022 08/23/2022 12:1 6 AM SHUTTLER COVID - 19 09/03/2022 09/03/2022 09/13/2022 12:1 6 AM CDT documented as of this encounter Care Teams Leather Lacer Relationship Specialty Start Date End Date Provider, Unknown UNKNOWN PCP - General 05/22/21 09/11/22 Mario Quinones MD 4 [facility] [address] [place] [address] PCP - General Family Medicine 09/12/22 04/17/24 Federico Galdamez MD [address] [facility] [address] [place] [address] PCP - General Internal Medicine 04/18/24 Eulalia Sebastian MD #2 [facility] [address] [place] [address] Consulting Physician Otolaryngology 02/15/25 documented as of this encounter
--- OUTSIDE RECORDS SUMMARY | 2025-04-11 09:50 | XMS_ITS | Encounter Summary ---
Author Organization [facility] Address [address] [place] [address] Phone Care Team Providers Care Oil Burner Technician Name Role Phone Mario Quinones MD Primary Care Provider [phone] Federico Galdamez MD Primary Care Provider [phone] Eulalia Sebastian MD Unavailable [phone] Encounter Details Date Type Department Care Team (Late st Contact Info) Description 04/13/2024 Lab Requisition [facility] Laboratory Services [address] [place] [address] Federico Galdamez MD [address] [address] Vitamin D deficiency, unspecified Social History Tobacco Use Types Packs/Day Years [...] Description 09/20/2025 1:30 PM CDT Office Visit [facility] Medical Group - Ear, Nose & Throat [facility] #2 [facility] [place] [phone] Eulalia Sebastian MD #[address] [phone] documented as of this encounter Procedures Procedure Name Priority Date/Time Associated Diagnosis Comments VITAMIN D, 25 HYDROXY TOTAL Routine 04/13/2024 6:09 AM CDT Vitamin D deficiency, unspecified documented in this encounter Results * VITAMIN D, 25 HYDROXY TOTAL (04/13/2024 6:09 AM CDT) VITAMIN D, 25 HYDROX 42.3 ng/mL 04/13/2024 9:50 AM CDT [facility] Blood Venipuncture / Unknown 04/13/2024 6:09 AM CDT 04/13/2024 8:47 AM CDT Narrative [facility] - 04/13/2024 9:50 AM CDT Published reference ranges for Vitamin D vary depending on time and place and method of testing, and on patient's age, sex, ethnicity and levels of other measured analytes such as parathormone, calcium and phosphorus. The result should be evaluated in conjunction with clinical findings and suspicions. [place] of [employer] and Endocrine Clinical Practice Guidelines: Status Vitamin D levels (ng/mL) Deficient <=20 At risk of inadequacy 21-29 Sufficient 30-100 Centers of Disease Control and Prevention Guidelines: Status Vitamin D levels (ng/mL) Deficient <13 At risk of inadequacy 13-19 Sufficient 20-50 Possibly harmful >50 References: [place] [employer], 2010 Dietary reference intakes for calcium and vitamin D. [place]: The National Academies Press. Oneal M, Aris N, [place] UP, et al., Evaluation, treatment, and prevention of Vitamin D deficiency: an Endocrinology Clinical Practice Guideline. JCEM 2011 96: 7 6264-5796. Stacy A, Baljit C, Gurinder D, et al., Vitamin D Status: [place], 7344-0948, DEHS data brief, no. 59, MD Mehran: National Center for Health Statistics. 2011. us Federico Galdamez MD CHEMISTRY ORDERABLES Final Resu lt [facility] #[address] [place] [address] documented in this encounter Visit Diagnoses Diagnosis Vitamin D deficiency, unspecified documented in this encounter Care Teams Oil Burner Technician Relationship Specialty Start Date End Date Mario Quinones MD 4 [facility] [address] [place] [address] PCP - General Family Medicine 09/12/22 04/17/24 Federico Galdamez MD [address] [facility] [address] [place] [address] PCP - General Internal Medicine 04/18/24 Eulalia Sebastian MD #2 [facility] [address] [place] [phone] Consulting Physician Otolaryngology 02/15/25 documented as of this encounter
--- OUTSIDE RECORDS SUMMARY | 2025-04-11 09:50 | XMS_ITS | Encounter Summary ---
Author Organization [facility] Address [address] [place] [address] Phone Care Team Providers Care Glue Drier Operator Name Role Phone Provider, Unknown Primary Care Provider Unavaila ble Mario Quinones MD Primary Care Provider Federico Galdamez MD Primary Care Provider Eulalia Sebastian MD Unavailable [phone] Encounter Details Date Type Department Care Team (Late st Contact Info) Description 07/17/2022 [facility] [address] [place] [address] Mario Quinones MD [address] [facility] [address] [place] [address] Encounter for screening for COVID-19 Social History [...] Group - Ear, Nose & Throat - [place] [address] [place] [address] Eulalia Sebastian MD [address] [facility] [address] [place] [phone] documented as of this encounter Procedures Procedure Name Priority Date/Time Associated Diagnosis Comments SARS-COV-2 BY MOLECULAR Routine 07/17/2022 8:13 AM IRON MINER BLASTING Encounter for screening for COVID-19 documented in this encounter Results * SARS-COV-2 BY MOLECULAR (07/17/2022 8:13 AM IRON MINER BLASTING) SARSCOV2 NOT DETECTED (Referen ce Range for this test is Not Detected ) [facility] THERMOFISHER FAST DX 07/17/2022 5:12 PM IRON MINER BLASTING [facility] Comment:This test was perfor med by a RT-PCR method. Other Non-Phlebotomy Collection / Unknown 07/17/2022 8:13 AM IRON MINER BLASTING 07/17/2022 10:00 AM IRON MINER BLASTING Narrative [facility] - 07/17/2022 5:12 PM IRON MINER BLASTING Authorized Fact Sheets about this test for providers and patients are available at: https://www.fda.gov/medical-devices/pvgrndmdo-tibtudhmri-pycialo-devices/emergen -us e-authorizations us Mario Quinones MD MICROBIOLOGY - GENERAL ORDERAB LES Final Result [facility] [address] [place] [address], documented in this encounter Visit Diagnoses Diagnosis Encounter for screening for COVID-19 documented in this encounter Additional Health Concerns Infection Onset Date Last Indicated Resolved Time COVID - 19 06/25/2022 08/13/2022 08/23/2022 12:1 6 AM IRON MINER BLASTING COVID - 19 09/03/2022 09/03/2022 09/13/2022 12:1 6 AM CDT documented as of this encounter Care Teams Glue Drier Operator Relationship Specialty Start Date End Date Provider, Unknown UNKNOWN PCP - General 05/22/21 09/11/22 Mario Quinones MD [address] [place] [address] [address] [place] [address] PCP - General Family Medicine 09/12/22 04/17/24 Federico Galdamez MD [address] [facility] [address] [place] [address] PCP - General Internal Medicine 04/18/24 Eulalia Sebastian MD #2 [facility] [address] [address] Consulting Physician Otolaryngology 02/15/25 documented as of this encounter
--- OUTSIDE RECORDS SUMMARY | 2025-04-11 09:50 | XMS_ITS | Clinical Summary ---
Author Organization [address] Address [address] [place] [address] Care Team Providers Care Under Trimmer Name Role Phone Federico Galdamez MD Primary Care Provider Allergies Active Allergy Reactions Criticality Noted Date Comments Cephalosporins Medications cholecalciferol (VITAMIN D3) 5,000 unit tablet 0 0 4 Active Additional Information Patient not taking.Reported on 05/20/2022 acetaminophen (TYLENOL) 325 mg tablet take 1 tablet (325MG) by oral route every 4 hours as needed 0 2 Active guaiFENesin (DIABETIC TUSSIN MUCUS RELIEF) 200 mg/5 mL liquid take 5 milliliter (200MG) by oral route every 4 hours as needed 0 2 Active bacitracin-neom ycin-polymyxin B (TRIPLE ANTIBIOTIC) 400-3.5-5,000 lryt-uc-qgqs ointment in packet apply as needed to affected area 0 2 Active clindamycin (CLINDAGEL) 1 % gel apply by topical route 2 times every day a thin layer to the affected area(s) 0 2 Active magnesium hydroxide (magnesium hydroxide) 400 mg/5 mL suspension take 30 milliliter by oral route every day as needed, followed by a full glass (8 oz) of liquid 0 0 5 Active methylphenidate HCl (RITALIN) 10 mg tablet TAKE (1) TABLET BY MOUTH THREE TIMES DAILY. *PROGRAM MON-FRI* 90 tablet 1 Active risperiDONE (RisperDAL) 1 mg tablet Take 1 mg by mouth 2 (two) times a day Active citalopram (CeleXA) 10 mg tablet Take 10 mg by mouth daily Active clotrimazole 1 % cream 2 Active nystatin cream 2 Active Active Problems Problem Noted Date Diagnosed Date Closed fracture of lower end of right radius with routine healing 12/17/2021 BMI 31.0-31.9,adult 03/16/2019 Overview (03/16/2019): BMI Follow-up includes: nutrition counseling, exercise counseling and education provided. Attention deficit disorder 03/08/2019 Down's syndrome 03/08/2019 Dysfunction of eustachian tube 03/08/2019 Enuresis 03/08/2019 Lack of expected normal physiological developmen t 03/08/2019 Vitamin D deficiency 03/09/2018 Assessment & Plan (10/27/2022 11:03 AM CDT): Replace with 50k a week for 12 weeks Assessment & Plan (11/21/2021 1:44 PM CDT): Will recheck his recent labs and follow Assessment & Plan (10/01/2020 10:30 AM CDT): Will recheck his recent labs and follow Assessment & Plan (08/09/2019 1:40 PM LOGISTICS CENTER MANAGER): His last level of 22.3 will replace him with 50,000 week for 12 weeks Assessment & Plan (03/16/2019 10:19 AM CDT): We will begin 50,000 week on 12 weeks Assessment & Plan (10/13/2018 1:57 PM CDT): Vitamin-D continues to run low I would like to supplement this with 50,000 week for 12 weeks Assessment & Plan (03/09/2018 8:37 AM CDT): Continues on vitamin-D replacement at this time BMI 32.0-32.9,adult 09/11/2017 Overview (03/09/2018): BMI Follow-up includes: nutrition counseling, exercise counseling and education provided. Assessment & Plan (04/14/2018 1:30 PM CDT): BMI Follow-up includes: nutrition counseling, exercise counseling and education provided. Assessment & Plan (09/11/2017 9:20 AM CDT): BMI Follow-up includes: nutrition counseling, exercise counseling and education provided. 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 Last saw him on April of 2019. Assessment & Plan (04/14/2018 1:35 PM CDT): Continues to follow with Podiatry for follow-up Assessment & Plan (09/11/2017 9:59 AM CDT): Exam begin, will follow with podiatary Medicare annual wellness visit, initial 02/12/20 17 Assessment & Plan (11/17/2024 9:05 AM CDT): A Medicare Annual Wellness Visit (AWV) was done today as well. The patient filled out a depression screen, functional assessment screen, health risk assessment, and other physicians list. All the elements of this exam were completed as outlined by CMS. Please note that the documentation of this is split between paper documentation and this electronic record. Assessment & Plan (10/30/2023 10:59 AM CDT): A Medicare Annual Wellness Visit (AWV) was done today as well. The patient filled out a depression screen, functional assessment screen, health risk assessment, and other physicians list. All the elements of this exam were completed as outlined by CMS. Please note that the documentation of this is split between paper documentation and this electronic record. Assessment & Plan (10/27/2022 11:03 AM CDT): A Medicare Annual Wellness Visit (AWV) was done today as well. The patient filled out a depression screen, functional assessment screen, health risk assessment, and other physicians list. All the elements of this exam were completed as outlined by CMS. Please note that the documentation of this is split between paper documentation and this electronic record. Assessment & Plan (10/23/2021 2:26 PM CDT): A Medicare Annual Wellness Visit (AWV) was done today as well. The patient filled out a depression screen, functional assessment screen, health risk assessment, and other physicians list. All the elements of this exam were completed as outlined by CMS. Please note that the documentation of this is split between paper documentation and this electronic record. Assessment & Plan (10/01/2020 10:33 AM CDT): A Medicare Annual Wellness Visit (AWV) was done today as well. The patient filled out a depression screen, functional assessment screen, health risk assessment, and other physicians list. All the elements of this exam were completed as outlined by CMS. Please note that the documentation of this is split between paper documentation and this electronic record. We will need to draw blood as he has been with family since august 2019 Assessment & Plan (03/16/2019 10:20 AM CDT): A Medicare Annual Wellness Visit (AWV) was done today as well. The patient filled out a depression screen, functional assessment screen, health risk assessment, and other physicians list. All the elements of this exam were completed as outlined by CMS. Please note that the documentation of this is split between paper documentation and this electronic record. Assessment & Plan (03/09/2018 8:35 AM CDT): A Medicare Annual Wellness Visit (AWV) was done today as well. The patient filled out a depression screen, functional assessment screen, health risk assessment, and other physicians list. All the elements of this exam were completed as outlined by CMS. Please note that the documentation of this is split between paper documentation and this electronic record. Assessment & Plan (02/11/2017 8:45 AM CDT): A Medicare Annual Wellness Visit (AWV) was done today as well. The patient filled out a depression screen, functional assessment screen, health risk assessment, and other physicians list. All the elements of this exam were completed as outlined by CMS. Please note that the documentation of this is split between paper documentation and this electronic record. 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 Overview (09/25/2016): Scabies Conductive hearing loss 01/03/2014 Overview (09/25/2016): CONDCTV HEAR LOSS Assessment & Plan (10/13/2018 1:57 PM CDT): No changes currently Assessment & Plan (04/14/2018 1:35 PM CDT): No changes currently Assessment & Plan (09/11/2017 9:59 AM CDT): No changes at this time 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 11/05/2013 Overview (09/26/2016): MOD MENTAL RETARDATION Assessment & Plan (10/30/2023 11:00 AM CDT): No change currently continue to follow his clinical course dictates Assessment & Plan (08/09/2019 1:40 PM LOGISTICS CENTER MANAGER): No change currently continue to follow his clinical course dictates Assessment & Plan (10/13/2018 1:57 PM CDT): Unchanged at this time Assessment & Plan (02/11/2017 8:49 AM CDT): Unchanged at this time Hearing finding 11/05/2013 Overview (09/26/2016): HEARING LOSS NEC Resolved Problems Problem Noted Date Diagnosed Date Resolved Date BMI 28.0-28.9,adult 02/11/2017 10/24/19 22 Assessment & Plan (02/11/2017 8:33 AM CDT): BMI Follow-up includes: nutrition counseling, exercise counseling and education provided. Immunizations Immunization Administration Dates Next Due DTP 10/22/1995, 2,1990,08/26,1990 H1N1 Inj 04/16/2009 Hep B Vaccine 09/14/2000 Hep B, Adolescent or Pediatric 09/14/2000,1999,03/19/2000 HiB 07/28/1991, 1,1990,06/24 Influenza, Quadrivalent, Spl it, Preservative Free, Intramuscular 04/24/2020 Influenza, Trivalent, IM (MDV) 05/03/2021,2014,03/22/2011 Influenza, Trivalent, Recomb inant, Egg Free, Preservative Free, Antibiotic Free, IM (FLUBLOK) 03/22/2014 Influenza, Unspecified 03/22/2022,2020(Deferred: Patient Refused),04/05/2019,03/22/2018, 017,03/22/2016 MMR 10/22/1995,07/28/1991 OPV 10/22/1995, 2,1990,08/26,1990 Pneumococcal Polysaccharide PPV23 06/06/2010 Td, adsorbed 10/15/2004 Tdap 09/12/2022,10/15/2004 Social History Tobacco Use Types Packs/Day Years Used Date Smoking Tobacco: Never Tobacco Cessation:Counseling Given: Not Answered Alcohol Use Standard Drinks/Week Comments No 0 (1 standard drink = 0.6 oz pur e alcohol) PHQ-2 Answer Date Recorded PHQ-2 Total Score (If total score is 3 or more points, staff should administer the PHQ-9) 0 10/27/2022 Sex and Gender Information Value Date Recorded Sex Assigned at Not on file Legal Sex Male 8:46 PM LOGISTICS CENTER MANAGER Gender Identity Not on file Sexual Orientation Not on file Obstetrics History Last Filed Vital Signs Vital Sign Reading Time Taken Comments Blood Pressure 132/80 11/17/2024 9:11 AM CDT Pulse 94 11/17/2024 9:11 AM CDT Temperature 36.5 C (97.7 F) 11/21/2021 1:41 PM CDT Respiratory Rate - - Oxygen Saturation 97% 11/17/2024 9:11 AM CDT Inhaled Oxygen Concentration - - Weight 116.1 kg (256 lb) 11/17/2024 9:11 AM CDT Height 170.2 cm (5' 7) 11/17/2024 9:11 AM CDT Body Mass Index 40.1 11/17/2024 9:11 AM CDT Plan of Treatment Health Maintenance Due Date Last Done Comments Hepatitis C Screening 1990 Varicella Vaccines (1 of 2 - 13+ 2-dose series) 2003 HPV Vaccines (1 - 3-dose SCDM series) 2017 Depression Screening 10/28/2023 10/27/2022, 10/23/2021, 10/01/2020, Additional history exists Covid-19 Vaccine ( season) 2025 05/03/2021, 08/23/2020, 08/02/2020 Influenza Vaccine (#1) 2025 , 05/03/2021, 04/24/2020, Additional history exists Regular Well Visit/Exam 18-64 11/17/2025 11/17/2024, 10/30/2023, 10/27/2022, Additional history exists DTaP/Tdap/Td Vaccine (8 - Td or Tdap) 09/12/2032 09/12/2022, 10/15/2004, 10/15/2004, Additional history exists Hepatitis B Screening Completed 09/14/2000 , 09/14/2000, 05/11/2000, Additional history exists Pneumococcal vaccine <65 Aged Out 06/06/2010 No longer eligible based on patient's age to complete this topic Insurance [facility] MEDICARE [facility] Address: [id number] [place] [address] MEDICARE IDOR Care Teams Under Trimmer Relationship Specialty Start Date End Date Federico Galdamez MD PCP - General Internal Medicine 08/13/20
--- OUTSIDE RECORDS SUMMARY | 2025-04-11 09:50 | XMS_ITS | Encounter Summary ---
Author Organization [facility] Address [address] [place] [address] Phone Care Team Providers Care Clipper Operator Name Role Phone Provider, Unknown Primary Care Provider Unavaila ble Mario Quinones MD Primary Care Provider Federico Galdamez MD Primary Care Provider Eulalia [place] MD Unavailable [phone] Encounter Details Date Type Department Care Team (Late st Contact Info) Description 09/03/2022 Lab Requisition [facility] Laboratory Services [address] [place] [id number] Mario Quinones MD [address] [facility] [address] [place] [address] Encounter for screening for COVID-19 Social History [...] Group - Ear, Nose & Throat - [place] [address] [place] [address] Eulaila Sebastian MD [address] [facility] [address] [place] [address] documented as of this encounter Procedures Procedure Name Priority Date/Time Associated Diagnosis Comments SARS-COV-2 BY MOLECULAR Routine 09/03/2022 7:59 AM CDT Encounter for screening for COVID-19 documented in this encounter Results * SARS-COV-2 BY MOLECULAR (09/03/2022 7:59 AM CDT) SARSCOV2 NOT DETECTED (Referen ce Range for this test is Not Detected ) [facility] THERMOFISHER FAST DX 09/03/2022 5:01 PM CDT [facility] Comment:This test was perfor med by a RT-PCR method. Other COVID 19 Collection / Unknown 09/03/2022 7:59 AM CDT 09/03/2022 9:44 AM CDT Narrative [facility] - 09/03/2022 5:01 PM CDT Authorized Fact Sheets about this test for providers and patients are available at: https://www.fda.gov/medical-devices/yyprztkqk-drbwsioqjh-hiffovc-devices/emergen -us e-authorizations us Mario Quinones MD MICROBIOLOGY - GENERAL ORDERAB LES Final Result [facility] [address] [place] [address], documented in this encounter Visit Diagnoses Diagnosis Encounter for screening for COVID-19 documented in this encounter Additional Health Concerns Infection Onset Date Last Indicated Resolved Time COVID - 19 09/03/2022 09/03/2022 09/13/2022 12:1 6 AM CDT documented as of this encounter Care Teams Clipper Operator Relationship Specialty Start Date End Date Provider, Unknown UNKNOWN PCP - General 05/22/21 09/11/22 Mario Quinones MD [address] [place] [address] [address] [place] [address] PCP - General Family Medicine 09/12/22 04/17/24 Federico Galdamez MD [address] [place] [address] PCP - General Internal Medicine 04/18/24 Eulalia [place] MD #2 [facility] [address] [address] Consulting Physician Otolaryngology 02/15/25 documented as of this encounter
--- OUTSIDE RECORDS SUMMARY | 2025-04-11 09:50 | XMS_ITS | Encounter Summary ---
Author Organization [facility] Address [address] [place] [address] Phone Care Team Providers Care Mining Engineering Technologist Name Role Phone Provider, Unknown Primary Care Provider Unavaila ble Mario Quinones MD Primary Care Provider [phone] Federico Galdamez MD Primary Care Provider Eulalia [place] MD Unavailable [phone] Encounter Details Date Type Department Care Team (Late st Contact Info) Description 04/23/2022 Lab Requisition [facility] Laboratory Services [address] [place] [phone] Mario Quinones MD [address] [facility] [address] [place] [address] Encounter for screening for COVID-19 Social History [...] Description 09/20/2025 1:30 PM CDT Office Visit [facility] Medical Group - Ear, Nose & Throat - [place] [address] [place] [address] Eulalia [place] MD [address] [facility] [address] [place] [phone] documented as of this encounter Procedures Procedure Name Priority Date/Time Associated Diagnosis Comments SARS-COV-2 BY MOLECULAR Routine 04/23/2022 8:11 AM CDT Encounter for screening for COVID-19 documented in this encounter Results * SARS-COV-2 BY MOLECULAR (04/23/2022 8:11 AM CDT) SARSCOV2 NOT DETECTED (Referen ce Range for this test is Not Detected ) [facility] [place] THERMOFISHER FAST DX 04/24/2022 12:01 AM CDT [facility] Comment:This test was perfor med by a RT-PCR method. Other Non-Phlebotomy Collection / Unknown 04/23/2022 8:11 AM CDT 04/23/2022 11:20 AM CDT Narrative [facility] - 04/24/2022 12:01 AM CDT Authorized Fact Sheets about this test for providers and patients are available at: https://www.fda.gov/medical-devices/udiszgyzw-plubhtfjth-fzecrri-devices/emergen -us e-authorizations us Mario Quinones MD MICROBIOLOGY - GENERAL ORDERAB LES Final Result [facility] [address] [place] [address], documented in this encounter Visit Diagnoses Diagnosis Encounter for screening for COVID-19 documented in this encounter Additional Health Concerns Infection Onset Date Last Indicated Resolved Time COVID - 19 04/16/2022 04/23/2022 05/03/2022 12:1 7 AM HEALTH SERVICES RN COVID - 19 06/25/2022 08/13/2022 08/23/2022 12:1 6 AM HEALTH SERVICES RN COVID - 19 09/03/2022 09/03/2022 09/13/2022 12:1 6 AM CDT documented as of this encounter Care Teams Mining Engineering Technologist Relationship Specialty Start Date End Date Provider, Unknown UNKNOWN PCP - General 05/22/21 09/11/22 Mario Quinones MD [address] [place] [address] [address] [place] [address] PCP - General Family Medicine 09/12/22 04/17/24 Federico Galdamez MD [address] [facility] [address] [place] [address] PCP - General Internal Medicine 04/18/24 Eulalia [place] MD #2 [facility] [address] [place] [address] Consulting Physician Otolaryngology 02/15/25 documented as of this encounter
--- OUTSIDE RECORDS SUMMARY | 2025-04-11 09:50 | XMS_ITS | Encounter Summary ---
Author Organization [facility] Address [address] [place] [address] Phone Care Team Providers Care Sliver Lapper Name Role Phone Provider, Unknown Primary Care Provider Unavaila ble Mario Quinones MD Primary Care Provider [phone] Federico Galdamez MD Primary Care Provider Eulalia [place] MD Unavailable [phone] Encounter Details Date Type Department Care Team (Late st Contact Info) Description 08/13/2022 Lab Requisition [facility] Laboratory Services [address] [place] [address] Mario Quinones MD [address] [facility] [address] [place] [address] Encounter for screening for COVID-19 Social History [...] Description 09/20/2025 1:30 PM CDT Office Visit [facility] Medical Group - Ear, Nose & Throat - [place] [address] [place] [address] Eulalia [place] MD [address] [facility] [address] [place] [address] documented as of this encounter Visit Diagnoses Diagnosis Encounter for screening for COVID-19 documented in this encounter Additional Health Concerns Infection Onset Date Last Indicated Resolved Time COVID - 19 06/25/2022 08/13/2022 08/23/2022 12:1 6 AM SALT WASHER COVID - 19 09/03/2022 09/03/2022 09/13/2022 12:1 6 AM CDT documented as of this encounter Care Teams Sliver Lapper Relationship Specialty Start Date End Date Provider, Unknown UNKNOWN PCP - General 05/22/21 09/11/22 Mario Quinones MD 4 [facility] [address] [place] [address] PCP - General Family Medicine 09/12/22 04/17/24 Federico Galdamez MD [address] [facility] [address] [place] [address] PCP - General Internal Medicine 04/18/24 Eulalia [place] MD #2 [facility] [address] [place] [address] Consulting Physician Otolaryngology 02/15/25 documented as of this encounter
--- OUTSIDE RECORDS SUMMARY | 2025-04-11 09:50 | XMS_ITS | Clinical Summary ---
Author Organization [facility] Address [address] [place] [address] Phone Care Team Providers Care Locker Attendant Name Role Phone Federico Galdamez MD Primary Care Provider [phone] Eulalia [place] MD Unavailable [phone] Allergies Active Allergy Reactions Criticality Noted Date Comments Cephalosporins Unknown 09/12/2022 Medications citalopram (CeleXA) 10 MG Tablet Take 10 mg by mouth daily. Active citalopram (CeleXA) 20 MG Tablet 02/24/2025 Active losartan (COZAAR) 25 MG Tablet 25 mg daily. 09/12/2022 Active methylphenidate (RITALIN) 10 MG Tablet 10 mg 3 times daily. 07/11/2020 Active risperiDONE (risperDAL) 1 MG Tablet Take 1 mg by mouth 2 times daily. Active fluticasone (FLONASE) 50 MCG/ACT SuspensionIndica tions:Allergic rhinitis, unspecified seasonality, unspecified trigger,Deviated nasal septum,Hypertrop hy of both inferior nasal turbinates 2 Sprays by Nasal route daily for 30 days. Use in each nostril as directed. 9.9 mL 2 03/22/2025 04/21/20 25 Active Active Problems No known active problems Encounters Date Type Department Care Team Description 03/22/2025 1:45 PM CDT Office Visit [facility] Medical Group - Ear, Nose & Throat - [place] [address] [place] [address] Eulalia [place] MD Impacted cerumen of both ears (Primary Dx); Congenital aural atresia; Allergic rhinitis, unspecified seasonality, unspecified trigger; Deviated nasal septum; Hypertrophy of both inferior nasal turbinates; Mixed conductive and sensorineural hearing loss of left ear, unspecified hearing status on contralateral side Discharge Disposition: Discharged to home or Selfcare 03/22/2025 Travel from Last 3 Months Immunizations Immunization Administration Dates Next Due TDAP Vaccine 09/12/2022 Social History Tobacco Use Types Packs/Day Years Used Date Smoking Tobacco: Never Smokeless Tobacco: Never Tobacco Cessation:Counseling Given: Not Answered Sex and Gender Information Value Date Recorded Sex Assigned at Not on file Legal Sex Male 12:03 AM CDT Gender Identity Not on file Sexual Orientation Not on file Last Filed Vital Signs Vital Sign Reading Time Taken Comments Blood Pressure 140/80 03/22/2025 2:05 PM CDT Pulse 65 03/22/2025 2:05 PM CDT Temperature 36.4 C (97.6 F) 03/22/2025 2:05 PM CDT Respiratory Rate 18 03/22/2025 2:05 PM CDT Oxygen Saturation 97% 03/22/2025 2:05 PM CDT Inhaled Oxygen Concentration - - Weight 112.5 kg (248 lb) 03/22/2025 2:05 PM CDT Height 165.1 cm (5' 5) 03/22/2025 2:05 PM CDT Body Mass Index 41.27 03/22/2025 2:05 PM CDT Plan of Treatment Upcoming Encounters Date Type Department Care Team (Late st Contact Info) Description 09/20/2025 1:30 PM CDT Office Visit [facility] - Ear, Nose & Throat - [place] [address] [place] [address] Eulalia [place] MD [address] [place] [address] [address] Health Maintenance Due Date Last Done Comments Hepatitis C Virus (HCV) Screening 1990 Medicare Initial AWV G0438 03/22/2011 Human Papillomavirus (HPV) Immunization (1 - 3-dose SCDM series) 2017 Influenza Immunization (#1) 2025 10/0 06/2021, 05/03/2021, 04/24/2020, Additional history exists SARS-COV-2 Immunization ( season) 2025 05/03/2021, 08/23/2020, 08/02/2020 Td Immunization Every 10 Years (Adults With 1 Tdap) 09/12/2032 09/12/2022, 10/15/2004, 10/15/2004 Respiratory Syncytial Virus (RSV) Immunization (Adult) (1 - 1-dose 75+ series) 2065 Hepatitis B Immunization Completed 001, 05/11/2000, 03/19/2000 Pneumococcal Immunization Combined Aged Out 06/06/2010 No longer eligible based on patient's age to complete this topic DTaP/Tdap/Td Immunization Discontinued 2022, 10/15/2004, 10/15/2004, Additional history exists Meningococcal Immunization (ACWY) Aged Out No longer eligible based on patient's age to complete this topic Rotavirus Immunization Aged Out No lo nger eligible based on patient's age to complete this topic Procedures Procedure Name Priority Date/Time Associated Diagnosis Comments REMOVE IMPACTED EAR WAX VIA INSTRUMENT BILAT Routine 03/22/2025 1:45 PM CDT Impacted cerumen of both ears from Last 3 Months Results * REMOVE IMPACTED EAR WAX VIA INSTRUMENT BILAT (03/22/2025 1:45 PM CDT) Narrative Eulalia [place] MD - 03/22/2025 1:45 PM CDT Eulalia [place] MD 03/22/2025 3:12 PM PROCEDURE PERFORMED: Removal of bilateral Impacted Cerumen Risks, benefits and alternatives were discussed with the patient. Specific risks include irritation of the canal, bleeding, infection or need for additional procedures. Benefits include improvement of ear canal obstruction, and alternative includes observation or ccxv-rcb-rfgbmet remedies at home if they are candidate. After obtaining informed consent, the patient was placed in a semi-reclining position in the exam chair. The operative otoscope was used to visualize the both ear canals . Impacted/obstructing cerumen was noted in both sides . Cerumen removal was accomplished using suction The left tympanic membrane was visualized and noted to be intact and normal. The right tympanic membrane was visualized and noted to be intact and normal. The patient tolerated this well without complications. Eulalia [place] MD PROCEDURE/MINOR SURGICAL ORDERA BLES Final Result from Last 3 Months Insurance MEDICARE Advance Directives Documents on File Type Date Recorded Patient Real Estate Broker Associate Expl anation Other Advance Directive 11/20/2021 2:18 PM [facility] Teams Locker Attendant Relationship Specialty Start Date End Date Federico Galdamez MD [address] [facility] [address] [place] [address] PCP - General Internal Medicine 04/18/24 Eulalia [place] MD #2 [facility] [address] [place] [address] Consulting Physician Otolaryngology 02/15/25
--- OUTSIDE RECORDS SUMMARY | 2025-04-11 09:50 | XMS_ITS | Encounter Summary ---
Author Organization [facility] Address [address] [place] [address] Phone Care Team Providers Care Qa Tech Name Role Phone Provider, Unknown Primary Care Provider Unavaila ble Mario Quinones MD Primary Care Provider [phone] Federico Galdamez MD Primary Care Provider Eulalia [place] MD Unavailable [phone] Encounter Details Date Type Department Care Team (Late st Contact Info) Description 11/13/2021 [facility] [address] [place] [address] Mario Quinones MD [address] [facility] [address] [place] [address] Encounter for screening for COVID-19 Social History [...] Group - Ear, Nose & Throat - [place] [address] [place] [address] Eulalia [place] MD [address] [facility] [address] [place] [phone] documented as of this encounter Procedures Procedure Name Priority Date/Time Associated Diagnosis Comments SARS-COV-2 BY MOLECULAR Routine 11/13/2021 8:02 AM CDT Encounter for screening for COVID-19 documented in this encounter Results * SARS-COV-2 BY MOLECULAR (11/13/2021 8:02 AM CDT) SARSCOV2 NOT DETECTED (Referen ce Range for this test is Not Detected ) [facility] THERMOFISHER FAST DX 11/14/2021 2:01 PM CDT [facility] Comment:This test was perfor med by a RT-PCR method. Other Venipuncture / Unknown 11/13/2021 8:02 AM CDT 11/13/2021 12:00 PM CDT Narrative [facility] - 11/14/2021 2:01 PM CDT Authorized Fact Sheets about this test for providers and patients are available at: https://www.fda.gov/medical-devices/pntdahztn-xaagphcsve-miscfyz-devices/emergen -us e-authorizations us Mario Quinones MD MICROBIOLOGY - GENERAL ORDERAB LES Final Result [facility] [address] [place] [address], documented in this encounter Visit Diagnoses Diagnosis [...] 19 04/16/2022 04/23/2022 05/03/2022 12:1 7 AM SHIP WIRER COVID - 19 06/25/2022 08/13/2022 08/23/2022 12:1 6 AM SHIP WIRER COVID - 19 09/03/2022 09/03/2022 09/13/2022 12:1 6 AM CDT documented as of this encounter Care Teams Qa Tech Relationship Specialty Start Date End Date Provider, Unknown UNKNOWN PCP - General 05/22/21 09/11/22 Mario Quinones MD 4 [facility] [address] [place] [address] PCP - General Family Medicine 09/12/22 04/17/24 Federico Galdamez MD [address] [place] [address] PCP - General Internal Medicine 04/18/24 Eulalia [place] MD #2 [facility] [address] [place] [address] Consulting Physician Otolaryngology 02/15/25 documented as of this encounter
--- OUTSIDE RECORDS SUMMARY | 2025-04-11 09:50 | XMS_ITS | Encounter Summary ---
Author Organization [facility] Address [address] [place] [address] Phone Care Team Providers Care Restaurant Crew Member Name Role Phone Provider, Unknown Primary Care Provider Unavaila ble Mario Quinones MD Primary Care Provider [phone] Federico Galdamez MD Primary Care Provider Eulalia [place] MD Unavailable [phone] Encounter Details Date Type Department Care Team (Late st Contact Info) Description 07/30/2022 [facility] [address] [place] [address] Mario Quinones MD 4 [facility] [address] [place] [address] Encounter for screening for COVID-19 Social History [...] Group - Ear, Nose & Throat - [place] [address] [place] [address] Eulalia [place] MD [address] [facility] [address] [place] [address] documented as of this encounter Procedures Procedure Name Priority Date/Time Associated Diagnosis Comments SARS-COV-2 BY MOLECULAR Routine 07/30/2022 8:03 AM ADMITTING SUPERVISOR Encounter for screening for COVID-19 documented in this encounter Results * SARS-COV-2 BY MOLECULAR (07/30/2022 8:03 AM ADMITTING SUPERVISOR) SARSCOV2 NOT DETECTED (Referen ce Range for this test is Not Detected ) [facility] THERMOFISHER FAST DX 07/30/2022 11:05 PM ADMITTING SUPERVISOR [facility] Comment:This test was perfor med by a RT-PCR method. Other Non-Phlebotomy Collection / Unknown 07/30/2022 8:03 AM ADMITTING SUPERVISOR 07/30/2022 10:12 AM ADMITTING SUPERVISOR Narrative [facility] - 07/30/2022 11:05 PM ADMITTING SUPERVISOR Authorized Fact Sheets about this test for providers and patients are available at: https://www.fda.gov/medical-devices/sipvsbvay-ddfiwvcaka-awhxgsx-devices/emergen -us e-authorizations us Mario Quinones MD MICROBIOLOGY - GENERAL ORDERAB LES Final Result [facility] [address] [place] [address], documented in this encounter Visit Diagnoses Diagnosis Encounter for screening for COVID-19 documented in this encounter Additional Health Concerns Infection Onset Date Last Indicated Resolved Time COVID - 19 06/25/2022 08/13/2022 08/23/2022 12:1 6 AM ADMITTING SUPERVISOR COVID - 19 09/03/2022 09/03/2022 09/13/2022 12:1 6 AM CDT documented as of this encounter Care Teams Restaurant Crew Member Relationship Specialty Start Date End Date Provider, Unknown UNKNOWN PCP - General 05/22/21 09/11/22 Mario Quinones MD [address] [place] [address] [address] [place] [address] PCP - General Family Medicine 09/12/22 04/17/24 Federico Galdamez MD [address] [facility] [address] [place] [address] PCP - General Internal Medicine 04/18/24 Eulalia Sebastian MD #2 [facility] [address] [address] Consulting Physician Otolaryngology 02/15/25 documented as of this encounter
--- OUTSIDE RECORDS SUMMARY | 2025-04-11 09:50 | XMS_ITS | Encounter Summary ---
Author Organization [facility] Address [address] [place] [address] Phone Care Team Providers Care Truck Assembler Name Role Phone Provider, Unknown Primary Care Provider Unavaila ble Mario Quinones MD Primary Care Provider Federico Galdamez MD Primary Care Provider Eulalia [place] MD Unavailable [phone] Encounter Details Date Type Department Care Team (Late st Contact Info) Description 08/28/2021 Lab Requisition [facility] Laboratory Services [address] [place] [address] Mario Quinones MD [address] [facility] [address] [place] [address] Encounter for screening for COVID-19 Social History [...] Group - Ear, Nose & Throat - [place] [address] [place] [address] Eulalia [place] MD [address] [facility] [address] [place] [address] documented as of this encounter Procedures Procedure Name Priority Date/Time Associated Diagnosis Comments SARS-COV-2 BY MOLECULAR Routine 08/28/2021 7:33 AM SHEAR HELPER Encounter for screening for COVID-19 documented in this encounter Results * SARS-COV-2 BY MOLECULAR (08/28/2021 7:33 AM SHEAR HELPER) SARSCOV2 NOT DETECTED (Referen ce Range for this test is Not Detected ) [facility] THERMOFISHER FAST DX 08/29/2021 10:22 AM SHEAR HELPER [facility] Comment:This test was perfor med by a RT-PCR method. Other Non-Phlebotomy Collection / Unknown 08/28/2021 7:33 AM SHEAR HELPER 08/28/2021 11:01 AM SHEAR HELPER Narrative [facility] - 08/29/2021 10:22 AM SHEAR HELPER Authorized Fact Sheets about this test for providers and patients are available at: https://www.fda.gov/medical-devices/gogjaiylj-dimueosauo-wyxgiym-devices/emergen -us e-authorizations us Mario Quinones MD MICROBIOLOGY - GENERAL ORDERAB LES Final Result [facility] [address] [place] [address], documented in this encounter Visit Diagnoses Diagnosis [...] 19 04/16/2022 04/23/2022 05/03/2022 12:1 7 AM SHEAR HELPER COVID - 19 06/25/2022 08/13/202208/2308/23/2022 12:1 6 AM SHEAR HELPER COVID - 19 09/03/2022 09/03/2022 09/13/2022 12:1 6 AM CDT documented as of this encounter Care Teams Truck Assembler Relationship Specialty Start Date End Date Provider, Unknown UNKNOWN PCP - General 05/22/21 09/11/22 Mario Quinones MD 4 [facility] [address] [place] [address] PCP - General Family Medicine 09/12/22 04/17/24 Federico Galdamez MD [address] [facility] [address] [place] [address] PCP - General Internal Medicine 04/18/24 Eulalia Sebastian MD #2 [facility] [address] [place] [address] Consulting Physician Otolaryngology 02/15/25 documented as of this encounter
--- OUTSIDE RECORDS SUMMARY | 2025-04-11 09:50 | XMS_ITS | Encounter Summary ---
Author Organization [facility] Address [address] [place] [address] Phone Care Team Providers Care Resource Conservation Specialist Name Role Phone Provider, Unknown Primary Care Provider Unavaila ble Mario Quinones MD Primary Care Provider Federico Galdamez MD Primary Care Provider Eulalia Sebastian MD Unavailable [phone] Encounter Details Date Type Department Care Team (Late st Contact Info) Description 08/06/2022 Lab Requisition [facility] Laboratory Services [address] [place] [address] Mario Quinones MD [address] [facility] [address] [place] [address] Encounter for screening for COVID-19 Social History [...] Description 09/20/2025 1:30 PM CDT Office Visit [facility] - Ear, Nose & Throat - [place] [address] [place] [address] Eulalia Sebastian MD [address] [facility] [address] [place] [phone] documented as of this encounter Procedures Procedure Name Priority Date/Time Associated Diagnosis Comments SARS-COV-2 BY MOLECULAR Routine 08/06/2022 8:23 AM AQUACULTURE WORKER Encounter for screening for COVID-19 documented in this encounter Results * SARS-COV-2 BY MOLECULAR (08/06/2022 8:23 AM AQUACULTURE WORKER) SARSCOV2 NOT DETECTED (Referen ce Range for this test is Not Detected ) [facility] THERMOFISHER FAST DX 08/06/2022 8:07 PM AQUACULTURE WORKER [facility] Comment:This test was perfor med by a RT-PCR method. Other No Phlebotomy Charged / Unknown 08/06/2022 8:23 AM AQUACULTURE WORKER 08/06/2022 10:14 AM AQUACULTURE WORKER Narrative [facility] - 08/06/2022 8:07 PM AQUACULTURE WORKER Authorized Fact Sheets about this test for providers and patients are available at: https://www.fda.gov/medical-devices/iebzlfntb-ncoksrrecy-qqgnlpv-devices/emergen -us e-authorizations us Mario Quinones MD MICROBIOLOGY - GENERAL ORDERAB LES Final Result [facility] [address] [place] [address], documented in this encounter Visit Diagnoses Diagnosis Encounter for screening for COVID-19 documented in this encounter Additional Health Concerns Infection Onset Date Last Indicated Resolved Time COVID - 19 06/25/2022 08/13/2022 08/23/2022 12:1 6 AM AQUACULTURE WORKER COVID - 19 09/03/2022 09/03/2022 09/13/2022 12:1 6 AM CDT documented as of this encounter Care Teams Resource Conservation Specialist Relationship Specialty Start Date End Date Provider, Unknown UNKNOWN PCP - General 05/22/21 09/11/22 Mario Quinones MD [address] [place] [address] [address] [place] [address] PCP - General Family Medicine 09/12/22 04/17/24 Federico Galdamez MD [address] [place] [address] PCP - General Internal Medicine 04/18/24 Eulalia Sebastian MD [address]2 [facility] [address] [address] Consulting Physician Otolaryngology 02/15/25 documented as of this encounter
--- OUTSIDE RECORDS SUMMARY | 2025-04-11 09:50 | XMS_ITS | Encounter Summary ---
Author Organization [facility] Address [address] [place] [address] Phone Care Team Providers Care French Instructor Name Role Phone Provider, Unknown Primary Care Provider Unavaila ble Mario Quinones MD Primary Care Provider Federico Galdamez MD Primary Care Provider Eulalia Sebastian MD Unavailable [phone] Encounter Details Date Type Department Care Team (Late st Contact Info) Description 04/02/2022 Lab Requisition [facility] Laboratory Services [address] [place] [id number] Mario Quinones MD [address] [facility] [address] [place] [address] Encounter for screening for COVID-19 Social History [...] Group - Ear, Nose & Throat - [place] [address] [place] [address] Eulalia Sebastian MD [address] [facility] [facility] [address] [place] [phone] documented as of this encounter Procedures Procedure Name Priority Date/Time Associated Diagnosis Comments SARS-COV-2 BY MOLECULAR Routine 04/02/2022 8:16 AM CDT Encounter for screening for COVID-19 documented in this encounter Results * SARS-COV-2 BY MOLECULAR (04/02/2022 8:16 AM CDT) SARSCOV2 NOT DETECTED (Referen ce Range for this test is Not Detected ) [facility] THERMOFISHER FAST DX 04/03/2022 12:18 AM CDT [facility] Comment:This test was perfor med by a RT-PCR method. Other No Phlebotomy Charged / Unknown 04/02/2022 8:16 AM CDT 04/02/2022 11:20 AM CDT Narrative [facility] - 04/03/2022 12:18 AM CDT Authorized Fact Sheets about this test for providers and patients are available at: https://www.fda.gov/medical-devices/ahpmrkoyi-ldogaqjqza-antdikq-devices/emergen -us e-authorizations us Mario Quinones MD MICROBIOLOGY - GENERAL ORDERAB LES Final Result [facility] [address] [place] [address], documented in this encounter Visit Diagnoses Diagnosis Encounter for screening for COVID-19 documented in this encounter Additional Health Concerns Infection Onset Date Last Indicated Resolved Time COVID - 19 04/02/2022 04/02/2022 04/12/2022 12:1 6 AM CDT COVID - 19 04/16/2022 04/23/2022 05/03/2022 12:1 7 AM FILM PROCESSING UTILITY WORKER COVID - 19 06/25/2022 08/13/2022 08/23/2022 12:1 6 AM FILM PROCESSING UTILITY WORKER COVID - 19 09/03/2022 09/03/2022 09/13/2022 12:1 6 AM CDT documented as of this encounter Care Teams French Instructor Relationship Specialty Start Date End Date Provider, Unknown UNKNOWN PCP - General 05/22/21 09/11/22 Mario Quinones MD [address] [place] [address] [address] [place] [address] PCP - General Family Medicine 09/12/22 04/17/24 Federico Galdamez MD [address] [address] PCP - General Internal Medicine 04/18/24 Eulalia Sebastian MD #[address] [address] Consulting Physician Otolaryngology 02/15/25 documented as of this encounter
--- OUTSIDE RECORDS SUMMARY | 2025-04-11 09:51 | XMS_ITS | Encounter Summary ---
Author Organization [facility] Address [address] [place] [address] Phone Care Team Providers Care Blindstitch Machine Operator Name Role Phone Provider, Unknown Primary Care Provider Unavaila ble Mario Quinones MD Primary Care Provider Federico Galdamez MD Primary Care Provider Eulalia Sebastian MD Unavailable [phone] Encounter Details Date Type Department Care Team (Late st Contact Info) Description 11/20/2021 Lab Requisition [facility] Laboratory Services [address] [place] [address] Mario Quinones MD [address] [facility] [address] [place] [address] Encounter for screening for COVID-19 Social History [...] Group - Ear, Nose & Throat - [place] [address] [place] [address] Eulalia Sebastian MD [address] [facility] [address] [place] [phone] documented as of this encounter Procedures Procedure Name Priority Date/Time Associated Diagnosis Comments SARS-COV-2 BY MOLECULAR Routine 11/20/2021 8:09 AM CDT Encounter for screening for COVID-19 documented in this encounter Results * SARS-COV-2 BY MOLECULAR (11/20/2021 8:09 AM CDT) SARSCOV2 NOT DETECTED (Referen ce Range for this test is Not Detected ) [facility] THERMOFISHER FAST DX 11/21/2021 1:55 PM CDT [facility] Comment:This test was perfor med by a RT-PCR method. Other No Phlebotomy Charged / Unknown 11/20/2021 8:09 AM CDT 11/20/2021 12:07 PM CDT Narrative [facility] - 11/21/2021 1:55 PM CDT Authorized Fact Sheets about this test for providers and patients are available at: https://www.fda.gov/medical-devices/demqykdsb-fonoaoshdu-gaytoan-devices/emergen -us e-authorizations us Mario Quinones MD MICROBIOLOGY - GENERAL ORDERAB LES Final Result [facility] [address] [place] [address], documented in this encounter Visit Diagnoses Diagnosis [...] 19 04/16/2022 04/23/2022 05/03/2022 12:1 7 AM HARDBOARD FACTORY WORKER COVID - 19 06/25/2022 08/13/2022 08/23/2022 12:1 6 AM HARDBOARD FACTORY WORKER COVID - 19 09/03/2022 09/03/2022 09/13/2022 12:1 6 AM CDT documented as of this encounter Care Teams Blindstitch Machine Operator Relationship Specialty Start Date End Date Provider, Unknown UNKNOWN PCP - General 05/22/21 09/11/22 Mario Quinones MD [address] [facility] [address] [place] [address] PCP - General Family Medicine 09/12/22 04/17/24 Federico Galdamez MD [address] [facility] [address] [place] [address] PCP - General Internal Medicine 04/18/24 Eulalia Sebastian MD #2 [facility] [address] [place] [address] Consulting Physician Otolaryngology 02/15/25 documented as of this encounter
--- OUTSIDE RECORDS SUMMARY | 2025-04-11 09:51 | XMS_ITS | Encounter Summary ---
Author Organization [facility] Address [address] [place] [address] Phone Care Team Providers Care Material Flow Analyst Name Role Phone Provider, Unknown Primary Care Provider Unavaila ble Mario Quinones MD Primary Care Provider Federico Galdamez MD Primary Care Provider Eulalia Sebastian MD Unavailable [phone] Encounter Details Date Type Department Care Team (Late st Contact Info) Description 03/19/2022 [facility] [address] [place] [address] Mario Quinones MD [address] [facility] [address] [place] [address] Encounter for screening for COVID-19 Social History [...] Group - Ear, Nose & Throat - [place] [address] [place] [address] Eulalia Sebastian MD [address] [facility] [address] [place] [phone] documented as of this encounter Procedures Procedure Name Priority Date/Time Associated Diagnosis Comments SARS-COV-2 BY MOLECULAR Routine 03/19/2022 7:52 AM CDT Encounter for screening for COVID-19 documented in this encounter Results * SARS-COV-2 BY MOLECULAR (03/19/2022 7:52 AM CDT) SARSCOV2 NOT DETECTED (Referen ce Range for this test is Not Detected ) [facility] THERMOFISHER FAST DX 03/20/2022 5:34 PM CDT [facility] Comment:This test was perfor med by a RT-PCR method. Other Non-Phlebotomy Collection / Unknown 03/19/2022 7:52 AM CDT 03/19/2022 11:57 AM CDT Narrative [facility] - 03/20/2022 5:34 PM CDT Authorized Fact Sheets about this test for providers and patients are available at: https://www.fda.gov/medical-devices/qpujprffl-lbfpsrbose-woimney-devices/emergen -us e-authorizations us Mario Quinones MD MICROBIOLOGY - GENERAL ORDERAB LES Final Result [facility] [address] [place] [address], documented in this encounter Visit Diagnoses Diagnosis Encounter for screening for COVID-19 documented in this encounter Additional Health Concerns Infection Onset Date Last Indicated Resolved Time COVID - 19 03/05/2022 03/19/2022 03/29/2022 12:1 6 AM CDT COVID - 19 04/02/2022 04/02/2022 04/12/2022 12:1 6 AM CDT COVID - 19 04/16/2022 04/23/2022 05/03/2022 12:1 7 AM WAXER FLOOR COVID - 19 06/25/2022 08/13/2022 08/23/2022 12:1 6 AM WAXER FLOOR COVID - 19 09/03/2022 09/03/2022 09/13/2022 12:1 6 AM CDT documented as of this encounter Care Teams Material Flow Analyst Relationship Specialty Start Date End Date Provider, Unknown UNKNOWN PCP - General 05/22/21 09/11/22 Mario Quinones MD 4 [facility] [address] [place] [address] PCP - General Family Medicine 09/12/22 04/17/24 Federico Galdamez MD [address] [place] [address] PCP - General Internal Medicine 04/18/24 Eulalia Sebastian MD #2 [facility] [address] [place] [phone] Consulting Physician Otolaryngology 02/15/25 documented as of this encounter
--- OUTSIDE RECORDS SUMMARY | 2025-04-11 09:51 | XMS_ITS | Encounter Summary ---
Author Organization [facility] Address [address] [place] [address] Phone Care Team Providers Care Assembly Mechanic Name Role Phone Provider, Unknown Primary Care Provider Unavaila ble Mario Quinones MD Primary Care Provider Federico Galdamez MD Primary Care Provider [phone] Eulalia Sebastian MD Unavailable [phone] Encounter Details Date Type Department Care Team (Late st Contact Info) Description 02/19/2022 [facility] [address] [place] [address] Mario Quinones MD [address] [facility] [address] [place] [address] Encounter for screening for COVID-19 Social History [...] Group - Ear, Nose & Throat - [place] [address] [place] [address] Eulalia Sebastian MD [address] [facility] [address] [place] [phone] documented as of this encounter Procedures Procedure Name Priority Date/Time Associated Diagnosis Comments SARS-COV-2 BY MOLECULAR Routine 02/19/2022 8:06 AM CDT Encounter for screening for COVID-19 documented in this encounter Results * SARS-COV-2 BY MOLECULAR (02/19/2022 8:06 AM CDT) SARSCOV2 NOT DETECTED (Referen ce Range for this test is Not Detected ) [facility] THERMOFISHER FAST DX 02/20/2022 6:15 AM CDT [facility] Comment:This test was perfor med by a RT-PCR method. Other Non-Phlebotomy Collection / Unknown 02/19/2022 8:06 AM CDT 02/19/2022 12:42 PM CDT Narrative [facility] - 02/20/2022 6:15 AM CDT Authorized Fact Sheets about this test for providers and patients are available at: https://www.fda.gov/medical-devices/ijpvidyvn-eahdlkjmxg-vnaicvr-devices/emergen -us e-authorizations us Mario Quinones MD MICROBIOLOGY - GENERAL ORDERAB LES Final Result [facility] [address] [place] [address], documented in this encounter Visit Diagnoses Diagnosis Encounter for screening for COVID-19 documented in this encounter Additional Health Concerns Infection Onset Date Last Indicated Resolved Time COVID - 19 02/19/2022 02/19/2022 03/01/2022 12:1 6 AM CDT COVID - 19 03/05/2022 03/19/2022 03/29/2022 12:1 6 AM CDT COVID - 19 04/02/2022 04/02/2022 04/12/2022 12:1 6 AM CDT COVID - 19 04/16/2022 04/23/2022 05/03/2022 12:1 7 AM RUNNER MAN COVID - 19 06/25/2022 08/13/2022 08/23/2022 12:1 6 AM RUNNER MAN COVID - 19 09/03/2022 09/03/2022 09/13/2022 12:1 6 AM CDT documented as of this encounter Care Teams Assembly Mechanic Relationship Specialty Start Date End Date Provider, Unknown UNKNOWN PCP - General 05/22/21 09/11/22 Mario Quinones MD 4 [facility] [address] [place] [address] PCP - General Family Medicine 09/12/22 04/17/24 Federico Galdamez MD [address] [facility] [address] [place] [address] PCP - General Internal Medicine 04/18/24 Eulalia Sebastian MD #2 [facility] [address] [place] [address] Consulting Physician Otolaryngology 02/15/25 documented as of this encounter
--- OUTSIDE RECORDS SUMMARY | 2025-04-11 09:51 | XMS_ITS | Encounter Summary ---
Author Organization [facility] Address [address] [place] [address] Phone Care Team Providers Care Storm Door Maker Name Role Phone Provider, Unknown Primary Care Provider Unavaila ble Mario Quinones MD Primary Care Provider Federico Galdamez MD Primary Care Provider Eulalia Sebastian MD Unavailable [phone] Encounter Details Date Type Department Care Team (Late st Contact Info) Description 03/05/2022 Lab Requisition [facility] Laboratory Services [address] [place] [phone] Mario Quinones MD [address] [facility] [address] [place] [address] Encounter for screening for COVID-19 Social History [...] Group - Ear, Nose & Throat - [place] [address] [place] [address] Eulalia Sebastian MD [address] [facility] [address] [place] [phone] documented as of this encounter Procedures Procedure Name Priority Date/Time Associated Diagnosis Comments SARS-COV-2 BY MOLECULAR Routine 03/05/2022 7:44 AM CDT Encounter for screening for COVID-19 documented in this encounter Results * SARS-COV-2 BY MOLECULAR (03/05/2022 7:44 AM CDT) SARSCOV2 NOT DETECTED (Referen ce Range for this test is Not Detected ) [facility] THERMOFISHER FAST DX 03/05/2022 10:11 PM CDT [facility] Comment:This test was perfor med by a RT-PCR method. Other Non-Phlebotomy Collection / Unknown 03/05/2022 7:44 AM CDT 03/05/2022 9:37 AM CDT Narrative [facility] - 03/05/2022 10:11 PM CDT Authorized Fact Sheets about this test for providers and patients are available at: https://www.fda.gov/medical-devices/mfiwipftv-ybjhplhrtz-qdnwwya-devices/emergen -us e-authorizations us Mario Quinones MD MICROBIOLOGY - GENERAL ORDERAB LES Final Result [facility] [address] [place] [address], documented in this encounter Visit Diagnoses Diagnosis Encounter for screening for COVID-19 documented in this encounter Additional Health Concerns Infection Onset Date Last Indicated Resolved Time COVID - 19 03/05/2022 03/19/2022 03/29/2022 12:1 6 AM CDT COVID - 19 04/02/2022 04/02/2022 04/12/2022 12:1 6 AM CDT COVID - 19 04/16/2022 04/23/2022 05/03/2022 12:1 7 AM CLOTH PAINTER COVID - 19 06/25/2022 08/13/2022 08/23/2022 12:1 6 AM CLOTH PAINTER COVID - 19 09/03/2022 09/03/2022 09/13/2022 12:1 6 AM CDT documented as of this encounter Care Teams Storm Door Maker Relationship Specialty Start Date End Date Provider, Unknown UNKNOWN PCP - General 05/22/21 09/11/22 Mario Quinones MD [address] [facility] [address] [place] [address] PCP - General Family Medicine 09/12/22 04/17/24 Federico Galdamez MD [address] [facility] [address] [place] [address] PCP - General Internal Medicine 04/18/24 Eulalia Sebastian MD #2 [facility] [address] [place] [address] Consulting Physician Otolaryngology 02/15/25 documented as of this encounter
== END 2025-04-11 09:01 | disposition home or self-care (01) ==
LOC: ANHBWCAUD 09:01
PROVIDERS: PCP Internal Medicine Rheumatology
DX: H90.A21 Sensorineural hearing loss, unilateral, right ear, with restricted hearing on the contralateral side (principal); H90.A32 Mixed conductive and sensorineural hearing loss, unilateral, left ear with restricted hearing on the contralateral side; H74.8X2 Other specified disorders of left middle ear and mastoid; Q89.89 Other specified congenital malformations
CPT/HCPCS: 92557; 92567